=== PATIENT | male | born 1945 | race Caucasian/White ===

== ENCOUNTER 2021-02-05 09:14 | Inpatient (IN) ==
--- NOTE | 2021-02-04 12:33 | Anesthesiology Consultation ---
Date of Service February 04, 2021 History R foot drop The patient's blood sugar did drop to 70 and he was given one amp of D50 IV as and bag of 5% Dextrose was also started IV. His blood sugar on recheck was 182. Patient is sleepy but arousable and answering questions appropriately. He states he got sleepy after the medications he received in [facility]. This is likely the effect of the gabapentin he received as he is still sleepy after correcting his blood sugar. Assessment & Plan (1) Encounter for pre-operative examination: - COVID screening: Per assessment on 02/04: Travel screen negative, no known COVID-19 positive contacts or current COVID-19 related symptoms. Patient vaccinated. Surgeon arranged preop COVID testing (done 02/03; [place])- result was negative. Pt requiring admission post-operatively. Plan for recheck with COVID [place] AM DOS due to possibility that patient may have a roommate. OR aware. [place] order placed. - Cardiology office visit (10/01/20): "He has reasonable functional status for a ge, reported no cardiac symptoms and was clinically euvolemic. He does have LV systolic dysfunction with a last recorded EF of 40-45% but, as you know, this is not a contraindication to his right rotator cuff surgery, given his reasonable functional status in the absence of symptoms. He also had a relatively benign cardiac examination apart from a paradoxically split second heart sound, which is secondary to the chronic left bundle branch block. We should proceed with his surgery, excepting the cardiovascular risk involved in under perioperative beta-blockade. An ischemic evaluation is not merited." - Vascular office visit (05/09/20): appt was clearance for c-spine surgery: "US of his abdominal aorta reveals no evidence of endoleak. His noninvasive testing was within normal limits with normal ABIs. We will see him back in the office in 1 year with repeat testing. Okay to proceed with his neck surgery from our standpoint. In regards to his endograft, he may hold his Plavix for his upcoming surgery if needed." Per patient, Plavix was discontinued years ago but it was mentioned in 04/2020 vascular office visit note. Vascular did mention that it was okay to hold Plavix prior to c-spine surgery scheduled end of last year. Patient's says they will contact vascular to confirm if going forward he is supposed to be taking Plavix normally. - Check BSG AM DOS (glucose 53 on most recent labs, known hx of NIDDM on oral treatment. Will recheck glucose AM DOS) - Surgery was originally scheduled 09/2020 but rescheduled due to hyperkalemia (resolved) and anemia. Anemia now improved and patient had GI workup. Per GI note (01/07/21): "I spoke with the patient's in regard to the capsule endoscopy findings of a small intestinal erosion and prominent AVM that could be sources of his chronic gi blood loss and iron deficiency anemia noted in Sep 2020.. It is encouraging that his hgb is up to 11.6 as of 12-19-2020 with his treatment. he has stopped his aspirin 81 mg daily and has stopped using his nsaid for his shoulder pain. He has not on plavix etc. he is on ferrous sulfate 325 mg daily. he did receive his to IV iron. I discussed that if he continues his ferrous sulfate 325 daily and indefinitely, most likely we can compensate for any future chronic gi blood loss from his AVMS. We will check his cbc and iron studies in 2 and 4 mo.. Discussed that from my point of view, gastroenterology, he can have his shoulder surgery with very low probability that any gi issues would arise that would complicate his surgery or recovery." Did not see iron supplementation on patient's current medication list. Called and spoke with patient/patient's . She states that they were not told to start this but will chicken picker and start today. Hgb has remained stable over past month with most recent hgb 11.6 on recent 01/26 labs. - This was a late add-on case afternoon prior to DOS. Case reviewed with Dr. Watts. Okay to proceed with surgery without anything further at this point pending evaluation AM DOS. Chart Review Chart Review: Acceptable Risk for Surgery (pending evaluation AM DOS) and Patient NOT seen in Pre Admission Testing History Surgery Operation Date: 02/05/21 11:45 Proposed Procedures p Right Total Shoulder Arthroplasty Reverse - Tenzin Garcia M.D. Height/Weight Height: 5 ft 11 in Weight: 110.677 kg Allergies Allergy/AdvReac Type Severity Reaction Status Date / Time morphine AdvReac n/v, Verified 02/05/21 09:48 hypoventilation Medications Home Medications Medication Instructions Recorded Confirmed Last Taken aspirin [Aspir-81] 81 mg PO Q OTHER DAY 09/17/20 02/05/21 01/29/21 08:00 atorvastatin 40 mg PO PM 09/17/20 02/05/21 02/04/21 17:00 bisoprolol fumarate 5 mg PO QAM 09/17/20 02/05/21 02/05/21 06:00 donepezil 5 mg PO QPM 09/17/20 02/05/21 02/04/21 17:00 fenofibrate nanocrystallized 145 mg PO QAM 09/17/20 02/05/21 02/04/21 08:00 [Tricor] gabapentin 1,200 mg PO 09/17/20 02/05/21 02/04/21 22:00 glimepiride 2 mg PO QAM 09/17/20 02/05/21 02/04/21 08:00 levothyroxine 75 mcg PO QAM 09/17/20 02/05/21 02/05/21 06:00 lisinopril 10 mg PO QAM 09/17/20 02/05/21 02/04/21 12:00 montelukast 10 mg PO QAM 09/17/20 02/05/21 02/04/21 08:00 quetiapine 300 mg PO 09/17/20 02/05/21 02/04/21 22:00 ropinirole 2 mg PO QPM 09/17/20 02/05/21 02/04/21 17:00 sertraline 100 mg PO 09/17/20 02/05/21 02/04/21 22:00 spironolactone 12.5 mg PO QAM 09/17/20 02/05/21 02/04/21 08:00 dutasteride 0.5 mg PO QAM 02/04/21 02/05/21 02/05/21 06:00 silodosin [Rapaflo] 8 mg PO QAM 02/04/21 02/05/21 02/05/21 06:00 Vitamin D3 1 tab PO DAILY 02/05/21 02/05/21 02/04/21 08:00 acetaminophen [Tylenol Extra 500 mg PO Q6H 02/05/21 02/05/21 02/04/21 22:00 Strength] cyclobenzaprine [Flexeril] 5 mg PO HS 02/05/21 02/05/21 02/04/21 22:00 ferrous sulfate 325 mg PO DAILY 02/05/21 02/05/21 02/05/21 06:00 lamotrigine 200 mg PO BID 02/05/21 02/05/21 02/04/21 22:00 Active Medications Generic Name Dose Route Start Last Admin Trade Name Joana PRN Reason Stop Dose Admin Acetaminophen 1,000 mg 02/05/21 06:00 02/05/21 10:15 Acetaminophen 500 Mg Tab PO 02/05/21 18:00 1,000 mg PREOP IRIS Administration Famotidine 20 mg 02/05/21 06:00 02/05/21 10:15 Famotidine 20 Mg Tab PO 02/05/21 18:00 20 mg PREOP IRIS Administration Gabapentin 300 mg 02/05/21 06:00 02/05/21 10:15 Gabapentin 300 Mg Cap PO 02/05/21 18:00 300 mg PREOP IRIS Administration Cefazolin Sodium 2,000 mg in 15 mls @ 3.75 mls/min 02/05/21 06:00 02/05/21 13:18 Ancef 2000mg IV 02/05/21 18:00 3.75 mls/min PREOP IRIS Administration Protocol Tranexamic Acid 1,000 mg in 100 mls @ 600 mls/hr 02/05/21 06:00 02/05/21 13:23 Tranexamic Acid / 0.7% Nacl IV 02/05/21 18:00 600 mls/hr TODAY@0600 IRIS Administration Lactated Ringer's 1,000 mls @ 15 mls/hr 02/05/21 06:00 02/05/21 13:18 Lr IV 02/06/21 05:59 Infused .Q24H IRIS Infusion Metoclopramide HCl 10 mg 02/05/21 06:00 02/05/21 10:16 Metoclopramide Hcl 10 Mg Tablet PO 02/05/21 18:00 10 mg PREOP IRIS Administration Oxycodone HCl 10 mg 02/05/21 06:00 02/05/21 10:16 Oxycodone Hcl 10 Mg Tabcr (Oxycontin) PO 02/05/21 18:00 10 mg PREOP IRIS Administration Past Medical History Medical History AAA (abdominal aortic aneurysm) s/p PEVAR, follows with Dr. Peng, vascular. Per most recent vascular note, 05/09/20, [place] aneurysm sac measures 4.8 x 3.4 cm, no evidence of endoleak. Anxiety Bipolar disorder BPH (benign prostatic hyperplasia) CAD (coronary artery disease) stent x1 (2015) COPD (chronic obstructive pulmonary disease) Degenerative disc disease Dementia forgetful, is POA (pt signs his own consents per PAT RN interview) Depression DM type 2 (diabetes mellitus, type 2) NIDDM Hearing deficit History of kidney stones HTN (hypertension) Hyperlipidemia Hypothyroidism LBBB (left bundle branch block) chronic Myocardial infarction 2015 Osteoarthritis Pulmonary asbestosis follows with Dr. Tomlin () Restless leg syndrome Sleep apnea non compliant with CPAP Past Family History Family History Other No family history of adverse response to anesthesia Past Surgical History Surgical History History of arthroscopy of right knee History of cardiac catheterization stent x1 (2015) History of colonoscopy History of repair of left rotator cuff History of tooth extraction History of transurethral resection of prostate S/P aneurysm repair PEVAR/multiple aneurym repairs (follows with vascular) Social History Smoking Status: Former smoker Do You Dip or Chew Tobacco: No Smoking End Date: 45 years ago Hx Alcohol Use: No Hx Substance Use: No substance use type: does not use Physical Exam Vital Signs Last Vital Signs Temp 35.7 C L 02/05/21 16:40 Pulse 69 02/05/21 17:00 Resp 18 02/05/21 17:00 BP 111/59 L 02/05/21 17:00 Pulse Ox 98 02/05/21 17:00 Lab Results Anesthesia Preop Results Results Anesthesia Widget: WBC 5.32 K/uL (4.8-10.8) 01/26/21 Hgb 11.6 g/dL (14.0-18.0) L 01/26/21 Hct 37.9 % (42-52) L 01/26/21 Plt 185 K/uL (130-400) 01/26/21 Na 143 mmol/L (136-145) 01/26/21 K 4.5 mmol/L (3.5-5.1) 01/26/21 Cl 111 mmol/L (98-107) H 01/26/21 CO2 30 mmol/L (21-32) 01/26/21 BUN 33 mg/dl (7-18) H 01/26/21 Creat 1.30 mg/dl (0.6-1.4) 01/26/21 Glucose Level 53 mg/dl (70-99) L* 01/26/21 POC Glucose 140 mg/dl (70-99) H 02/05/21 PT 11.1 Seconds (9.0-12.0) 01/26/21 PTT 25.1 Seconds (21.0-31.0) 01/26/21 INR 1.1 (0.9-1.1) 01/26/21 HA1c 5.5 % (4.5-5.6) 01/26/21 Urine Color Yellow 01/26/21 Urine Appearance Clear (Clear) 01/26/21 Urine pH 5.0 (4.5-7.5) 01/26/21 Urine Specific [place] 1.023 (1.000-1.030) 01/26/21 Urine Protein Negative (Negative) 01/26/21 Urine Glucose (UA) Negative (Negative) 01/26/21 Urine Ketones Negative (Negative) 01/26/21 Urine Blood Negative (Negative) 01/26/21 Urine Nitrite Negative (Negative) 01/26/21 Urine Bilirubin Negative (Negative) 01/26/21 Urine Urobilinogen Negative (Negative) 01/26/21 Urine Leukocyte Esterase Negative (Negative) 01/26/21 SARS-CoV-2, RNA, NAAT NEGATIVE (NEGATIVE) 02/05/21 Blood Type A Positive 02/05/21 Antibody Screen NEGATIVE 02/05/21 Testing Laboratory Results Blood Type A Positive 02/05/21 09:45 Antibody Screen NEGATIVE 02/05/21 09:45 02/05/21 02/05/21 02/05/21 16:44 15:43 13:54 POC Glucose 140 H 154 H 151 H 02/05/21 02/05/21 02/05/21 12:18 11:56 11:55 POC Glucose 150 H 182 H 205 H 02/05/21 02/05/21 11:38 09:53 POC Glucose 70 92 Electrocardiogram Date: 09/19/20 + SB @ (51bpm). LBBB. Subsequent cardiology clearance visit 10/01/20* Chest X-Ray Date: 09/19/20 Findings: + NAD Echocardiogram Date: 12/04/19 EF 40 to 45%. Mild diffuse hypokinesis. LVD. No significant valvular disease. Stress Test Date: 01/17/20 Type: nuclear Myocardial perfusion scan reveals a large basal and mid inferior wall infarct extending on into the apex. No significant ischemia is seen. EF 42%. Lexiscan stress EKG not indicative of ischemia. 49% MPHR.
--- NOTE | 2021-02-04 21:28 | History & Physical Report ---
Date of Service February 04, 2021 Assessment & Plan (1) Rotator cuff arthropathy of right shoulder: He again has right shoulder rotator cuff tear arthropathy. We previously had him set up for a reverse total shoulder arthroplasty as treatment for this, but this had to be canceled due to GI bleeding. He has finally been fully evaluated and treated for this, and cleared to proceed with his shoulder replacement surgery. We will get him back on the surgery schedule. Of note, we will avoid anti-inflammatories postoperatively to avoid any exacerbation of his gastritis. Risks, benefits, and alternatives of surgery were explained in detail. The surgical procedure, as well as postoperative recovery and rehabilitation, was also explained in detail. Risks include bleeding; infection; damage to surrounding structures such as nerves, blood vessels, and tendons that run in the area; persistent pain or stiffness; hardware failure; dislocation; brachial plexus palsy; blood clots; or need for further surgery. The patient understands all of this and wishes to proceed with surgery. Preoperative workup was completed today, and informed consent was obtained. Present on Admission?: Yes History of Present Illness Chief Complaint: Right shoulder pain and weakness Primary Care Provider: Henry Carrillo Mr. Lopes returns for his right shoulder. He again has had severe right shoulder pain and weakness for the past 2 years without any obvious injury but with gradual progressive worsening. This is quite painful and waking him up at night. He has a lot of weakness and cannot abduct past shoulder level, but the pain is much more bothersome than the lack of abduction strength. I gave him a shoulder joint steroid injection as first-line treatment for this in July 2020. He reports that he got about 60% improvement in his pain for a little over a month, but then it promptly wore off and he is back to his baseline level of pain. While the injection was giving him some pain relief, I was able to move his shoulder a little bit better. Due to his recurrent severe pain, we did actually have him set up for a reverse total shoulder arthroplasty, but this had to be canceled due to gastrointestinal bleeding issues. He had an extensive work-up with a grievance manager, including endoscopy, colonoscopy, and capsule endoscopy. He was finally cleared by his grievance manager to proceed with his shoulder surgery; we received this clearance on 01/08/21. It looks like they found a small intestinal erosion, some hemorrhoids, and an AV malformation as a source of his chronic blood loss. He has been treated with ferrous sulfate. The looks like he was instructed not to take any anti-inflammatories. Allergies Allergy/AdvReac Type Severity Reaction Status Date / Time morphine AdvReac n/v, Verified 02/04/21 11:37 hypoventilation Home Medications Medication Instructions Recorded Confirmed Type aspirin [Aspir-81] 81 mg PO Q OTHER DAY 09/17/20 02/04/21 History atorvastatin 40 mg PO PM 09/17/20 02/04/21 History bisoprolol fumarate 5 mg PO QAM 09/17/20 02/04/21 History donepezil 5 mg PO QPM 09/17/20 02/04/21 History fenofibrate nanocrystallized 145 mg PO QAM 09/17/20 02/04/21 History [Tricor] gabapentin 1,200 mg PO HS 09/17/20 02/04/21 History glimepiride 2 mg PO QAM 09/17/20 02/04/21 History lamotrigine 200 mg PO BID 09/17/20 02/04/21 History levothyroxine 75 mcg PO QAM 09/17/20 02/04/21 History lisinopril 10 mg PO QAM 09/17/20 02/04/21 History montelukast 10 mg PO QAM 09/17/20 02/04/21 History quetiapine 300 mg PO HS 09/17/20 02/04/21 History ropinirole 2 mg PO QPM 09/17/20 02/04/21 History sertraline 100 mg PO HS 09/17/20 02/04/21 History spironolactone 12.5 mg PO QAM 09/17/20 02/04/21 History dutasteride 0.5 mg PO QAM 02/04/21 02/04/21 History silodosin [Rapaflo] 8 mg PO QAM 02/04/21 02/04/21 History Past Med/Surg History Medical History AAA (abdominal aortic aneurysm) s/p PEVAR, follows with Dr. Peng, vascular. Per most recent vascular note, 05/09/20, [place] aneurysm sac measures 4.8 x 3.4 cm, no evidence of endoleak. Anxiety Bipolar disorder BPH (benign prostatic hyperplasia) CAD (coronary artery disease) stent x1 (2015) COPD (chronic obstructive pulmonary disease) Degenerative disc disease Dementia forgetful, is POA (pt signs his own consents per PAT RN interview) Depression DM type 2 (diabetes mellitus, type 2) NIDDM Hearing deficit History of kidney stones HTN (hypertension) Hyperlipidemia Hypothyroidism LBBB (left bundle branch block) chronic Myocardial infarction 2016 Osteoarthritis Pulmonary asbestosis follows with Dr. Tomlin () Restless leg syndrome Sleep apnea non compliant with CPAP Surgical History History of arthroscopy of right knee History of cardiac catheterization stent x1 (2015) History of colonoscopy History of repair of left rotator cuff History of tooth extraction History of transurethral resection of prostate S/P aneurysm repair PEVAR/multiple aneurym repairs (follows with vascular) Family History Other No family history of adverse response to anesthesia Social History Smoking Status: Former smoker Smoking End Date: 45 years ago; Second Hand Exposure: No; Do You Dip or Chew Tobacco: No; Tobacco Cessation Education Requested by Patient: No Hx Alcohol Use: No Hx Substance Use: No Preferred Language: Turkmen Communication Ability: Effective Helicopter Utility Aircrewman Required: No Beliefs That Will Affect Care: None Current Living Situation: Spouse Other Information That Helps Us Care for You: No Feels Safe at Home: Yes Safety Concerns: Feels Safe At This Time Assistive Devices: Denture - Upper and Glasses Physical Exam Physical Exam: General: The patient appears well developed and well nourished. Awake, alert, and oriented x 3. Appropriate mood and affect. Normal gait and station. Normal coordination and balance. Skin: The skin over the right shoulder shows no lesion or erythema. Inspection/Palpation: Visual inspection reveals no gross deformity of the shoulder. There is no palpable focal swelling. No significant focal tenderness to palpation. Range of Motion: There is limitation in shoulder range of motion due to pain, with palpable crepitus during motion. Stability: There is no gross ligamentous laxity. Strength: Rotator cuff strength is globally weak. Sensation: The patient reports no numbness in the hand. Vascular: Hand is warm and well perfused. No diffuse edema. Results & Data ([facility]) Diagnostic Findings Previous x-rays and MRI of the right shoulder were reviewed. They show obvious proximal migration humeral head with secondary remodeling changes consistent with rotator cuff tear arthropathy. MRI shows a massive, retracted, full- thickness rotator cuff tear involving the entirety of the supraspinatus and infraspinatus tendons. There is approximately 80% fatty atrophy of the supraspinatus muscle belly. Again noted is secondary remodeling changes on the undersurface the acromion, consistent with rotator cuff tear arthropathy. He does have some arthritic changes within the glenohumeral joint.
[~2021-02-05 09:14] MED LIST: ACETAMINOPHEN 500 MG TAB PO SCH; BUPIVACAINE 0.5 % 5 MG/1 ML PF 10ML VIAL ONE; FAMOTIDINE 20 MG TAB PO SCH; GABAPENTIN 300 MG CAP PO SCH; LR 15ML/HR IV SCH; METOCLOPRAMIDE HCL 10 MG TABLET PO SCH; TRANEXAMIC ACID 1,000 MG **IV Pre-op IV SCH; ceFAZolin 2000MG 2,000 MG/15 ML SYR IV SCH; oxyCODONE HCL 10 MG TABCR (OxyCONTIN) PO SCH
[2021-02-05] MEDS ORDERED: DEXTROSE 50% 50 ML SYRINGE IV ONE (11:43)
[2021-02-05] MEDS ORDERED: fentaNYL citrate 100 MCG/2 ML VIAL ONE (11:57)
[2021-02-05] MEDS ORDERED: MIDAZOLAM HCL 1 MG/ML 2ML VIAL ONE (11:57)
--- NOTE | 2021-02-05 12:34 | History & Physical Bridge Note ---
Date of Service February 05, 2021 History & Physical Bridge Note I have examined the patient, reviewed the History & Physical and in the interval since the performance of the History & Physical I have noted the following changes of clinical significance: no changes noted
[2021-02-05] MEDS ORDERED: ATROPINE SULFATE 0.1 MG/ML 10ML SYR IV PRN (14:49)
[2021-02-05] MEDS ORDERED: ePHEDrine sulfate 50 MG/ML AMP IV PRN (14:49)
[2021-02-05] MEDS ORDERED: fentaNYL citrate 100 MCG/2 ML VIAL IV PRN (14:49)
[2021-02-05] MEDS ORDERED: ONDANSETRON INJ 2 MG/ML 2 ML VIAL IV PRN ×2 (14:49→17:41)
[2021-02-05] MEDS ORDERED: ROCURONIUM BROMIDE 10 MG/ML 5 ML VIAL IV ONE (14:53)
[2021-02-05] MEDS ORDERED: ePHEDrine sulfate 50 MG/ML AMP ONE (14:53)
[2021-02-05] MEDS ORDERED: GLYCOPYRROLATE 0.2 MG/ML VIAL ONE (14:53)
[2021-02-05] MEDS ORDERED: VASOPRESSIN 20 UNIT/ML VIAL ONE (14:53)
[2021-02-05] MEDS ORDERED: PROPOFOL IV EMULSION 10 MG/ML 20 ML VIAL IV ONE (14:53)
[2021-02-05] MEDS ORDERED: PHENYLEPHRINE HCL 10 MG/ML VIAL ONE (14:53)
--- NOTE | 2021-02-05 16:07 | Post Operative Brief Note ---
Immediate Post Op Note v1 Date of Surgery February 05, 2021 Pre & Post Diagnosis Operation Date: 02/05/21 11:45 Pre-Op Diagnosis: Right Shoulder Rotator Cuff Tear Arthropathy Post-Op Diagnosis: Right Shoulder Rotator Cuff Tear Arthropathy I identified the patient and participated in the time-out.: Yes Procedure Operation Date: 02/05/21 11:45 Actual Procedures Right Reverse Total Shoulder Arthroplasty - Tenzin Garcia M.D. Surgeon Tenzin Garcia Trans Router Austin Terry PA-C Estimated Blood Loss 75 Findings Consistent with Post-Op Diagnosis
--- NOTE | 2021-02-05 16:14 | Operative Report ---
Post Operative Report Pre & Post Diagnosis Operation Date: 02/05/21 11:45 Pre-Op Diagnosis: Right Shoulder Rotator Cuff Tear Arthropathy Post-Op Diagnosis: Right Shoulder Rotator Cuff Tear Arthropathy I identified the patient and participated in the time-out.: Yes Procedure Operation Date: 02/05/21 11:45 Actual Procedures Right Reverse Total Shoulder Arthroplasty (62693) Open biceps tenodesis (25906) - Tenzin Garcia M.D. Surgeon Tenzin Garcia Decorative Engraver Austin Terry PA-C Estimated Blood Loss 75 Findings Consistent with Post-Op Diagnosis Specimens None Drains None Anesthesia Type General Regional Complications none Disposition Disposition: Recovery Room Indications Mr. Lopes is a 75-year-old male with chronic right shoulder pain and weakness. History, clinical exam, and imaging were consistent with the above diagnosis. Risks, benefits, and alternatives of surgery were explained in detail. The patient understood all this and wished to proceed. Description of Procedure Components Implanted: Tornier Reverse Total Shoulder implants Perform glenoid baseplate: 29mm, 15 degree full wedge with 6.5mm central screw and 5.0mm peripheral screws Glenosphere: 39mm standard Ascend Flex humeral stem: 6B Standard length (86mm) Humeral tray: 3.5mm offset, +0mm thickness Polyethylene insert: 39mm, +6mm thickness Patient was identified in the preoperative holding area. Operative extremity was marked. Regional blockade was given by the Anesthesia Staff. Patient was then brought back to the operating room, and general anesthesia was induced without complication. Appropriate weight-based dose of Ancef was infused intravenously for antibiotic prophylaxis. The patient was then placed in the beachchair position. Right arm was then prepped and draped in a standard sterile fashion using Chlorhexidine prep. A standard deltopectoral incision was made through the skin and subcutaneous tissue. The cephalic vein was identified and retracted medially. Small branches to the deltoid were coagulated as necessary. The clavipectoral fascia was then incised and the subdeltoid space was opened. The rotator cuff was found to be deficient, and I therefore decided to perform a reverse total shoulder arthroplasty as planned preoperatively. The biceps tendon was identified within the bicipital groove and tenodesed at the superior border of the pectoralis tendon with #2 FiberWire suture. The biceps tendon was then divided proximal to the tenodesis site and the rotator interval was opened. The proximal portion of the biceps tendon was excised. The remaining subscapularis tendon was elevated subperiosteally off of the lesser tuberosity. The glenohumeral joint was then dislocated, and large osteophytes were debrided with a ronguer. The humeral head cut was then made in the appropriate inclination and version using the cutting guide. The intramedullary canal of the humerus was then opened with a canal finder. The humeral canal was then sequentially broached to the appropriate size. A protective cap was then placed on top of the humeral trial. I then turned my attention to the glenoid. The proximal stump of the biceps tendon was excised, along with the labrum circumferentially around the glenoid. The Blueprint drill guide was then positioned on the glenoid, and the guidepin was then inserted. The 15 degree angled reamer was then inserted over the guidepin and an reamed to an appropriate depth. The central screw hole was drilled, and appropriate length 6.5mm central screw was selected. The baseplate was then implanted into place according to our preoperative Blueprint plan by tightening down the central screw. A peripheral 5mm nonlocking screw was placed postero-superiorly first for additional compression of the baseplate, and then additional locking 5 mm peripheral screws were placed to complete fixation of the baseplate. Glenosphere was then impacted and secured. A trial humeral tray and insert were placed on the trial humeral stem, and a trial reduction was carried out. Once I achieved acceptable joint stability and range of motion with the trial implants, the final humeral implants were assembled on the back table and then impacted into position. I then took the shoulder through full range of motion to ensure good stability and acceptable motion. Wound was then copiously irrigated with sterile saline. Deep fascia was closed with 0 V-lock suture. Subcutaneous tissue was closed with 2-0 V-lock, and skin was closed with 3-0 V-lock. Skin was then sealed with Dermabond. Sterile dressings were then applied with a waterproof silver-impregnated dressing, and the arm was placed into a sling. The patient was awakened from anesthesia and taken to the Post Anesthesia Care Unit in stable condition. There were no immediate complications from the procedure. I was present and scrubbed for the entire procedure, with the exception of final skin closure and dressing application. Due to the complex nature of the procedure, the entire surgery was performed with the operational assistance of Austin Terry PA-C. The nutritional assistant, under direct supervision, was involved in the performance of all aspects of the surgical procedure including patient positioning, tissue retraction, hemostasis, wound closure, and dressing application. I attest to the content of the Intraoperative Record and any orders documented therein. Any exceptions are noted below.
--- NOTE | 2021-02-05 17:06 | Anesthesiology Progress Note ---
Date of Service February 05, 2021 Anesthesia Post Procedure Vital Signs Vital Signs: Temp Pulse Resp BP Pulse Ox 02/05/21 17:00 69 18 111/59 L 98 02/05/21 16:50 65 20 111/71 100 02/05/21 16:40 35.7 C L 66 20 127/67 98 02/05/21 09:59 36.6 C 53 L 20 130/70 96 Transfer of Care Handoff Completed per policy Notes Mental Status: alert / awake / arousable and participated in evaluation Patient Amnestic to Procedure: Yes Nausea / Vomiting: adequately controlled Pain: adequately controlled Airway Patency, RR, SpO2: stable & adequate BP & HR: stable & adequate Hydration State: stable & adequate Anesthetic Complications: no major complications apparent and Pt Satisfied with anesthetic care
--- NOTE | 2021-02-05 17:10 | XRay Report ---
XR shoulder RT min 2V routine CLINICAL HISTORY: Post shoulder surgery COMPARISON: None. DISCUSSION: There are postsurgical changes of a reverse total right shoulder arthroplasty. There is n o dislocation. There is gas within soft tissues consistent with recent surgery. There is a suspected small right pleural effusion with right basilar atelectasis. There is mild vascular prominence. IMPRESSION: Postsurgical changes of a reverse total right shoulder arthroplasty. ACT 112: Negative or not required by law. Electronically signed by: Deric Harp M.D. 02/05/2021 5:08 PM
[2021-02-05] MEDS ORDERED: METOCLOPRAMIDE HCL INJ 5 MG/ML 2 ML VIAL IV PRN (17:41)
[2021-02-05] MEDS ORDERED: NALOXONE HCL 0.4 MG/1 ML VIAL/CARP IV PRN (17:41)
[2021-02-05] MEDS ORDERED: bisacodyL 10 MG SUPP PR PRN (17:41)
[2021-02-05] MEDS ORDERED: MAGNESIUM HYDROXIDE SUSP 30 ML UDC PO PRN (17:41)
[2021-02-05] MEDS ORDERED: PHARMACY GLYCEMIC MGMT CONSULT PRN (17:49)
[2021-02-05] MEDS ORDERED: GLUCAGON FOR INJ 1 MG VIAL SQ PRN (18:15)
[2021-02-05] MEDS ORDERED: CARBOHYDRATES FOR HYPOGLYCEMIA PO PRN (18:15)
[2021-02-05] MEDS ORDERED: DEXTROSE 50% 50 ML SYRINGE IV PRN (18:15)
[2021-02-05] MEDS ORDERED: GLUCOSE 10 TABS/TUBE PO PRN (18:15)
[2021-02-05] MEDS ORDERED: GLUCOSE 40% GEL 15 GM TUBE PO PRN (18:15)
--- NOTE | 2021-02-05 18:43 | Pharmacy Report ---
PHA: Glycemic Control AP - Date of Service February 05, 2021 - Assessment & Plan Laboratory Tests 01/26/21 02/05/21 02/05/21 15:09 09:53 11:38 POC Glucose 92 70 Hemoglobin A1c 5.5 02/05/21 02/05/21 02/05/21 11:55 11:56 12:18 POC Glucose 205 H 182 H 150 H Hemoglobin A1c 02/05/21 02/05/21 02/05/21 13:54 15:43 16:44 POC Glucose 151 H 154 H 140 H Hemoglobin A1c 02/05/21 18:11 POC Glucose 119 H Hemoglobin A1c Home Diabetes Regimen: * glimeperide 2mg po daily * A1c=5.5% (01/26/21) In-Patient Regimen: * Basal insulin: Not ordered at this time * Correctional Insulin: Novolog Correction per scale ACHS Goal Range: Low 100 mg/dL - High 140 mg/dL Correction Factor: 30 mg/dL/unit * Prandial insulin: Per carb ratio of 1 unit per 12 grams CHO consumed Pharmacy will continue to monitor patient daily and write orders per [facility] inpatient glycemic control protocol. Thanks. * Please note that the plan above was derived based on current level of insulin resistance and hospital stress. These recommendations are appropriate for inpatient admission only. Plan of care upon discharge will need to be reassessed to avoid potential outpatient hypo/hyperglycemia.
[2021-02-05] MEDS: ACETAMINOPHEN 500 MG TAB PO SCH ×2 (18:45→23:46)
[2021-02-05] MEDS: SODIUM CHLORIDE 0.9% 1000ML 1,000 ML IV SCH (18:46)
[2021-02-05] MEDS: INSULIN ASPART 100 UNITS/ML 3 ML PEN SC SCH ×2 (18:50→21:22)
[2021-02-05] MEDS: DONEPEZIL HCL 5 MG TAB PO SCH (20:47)
[2021-02-05] MEDS: GABAPENTIN 600 MG TAB PO SCH (20:47)
[2021-02-05] MEDS: SENNA 8.6 MG TAB PO SCH (20:48)
[2021-02-05] MEDS: ATORVASTATIN 40 MG TAB PO SCH (20:48)
[2021-02-05] MEDS: DOCUSATE SODIUM 100 MG CAP PO SCH (20:48)
[2021-02-05] MEDS: QUEtiapine FUMARATE 300 MG TABLET PO SCH (20:49)
[2021-02-05] MEDS: rOPINIRole HCL 1 MG TABLET PO SCH (20:49)
[2021-02-05] MEDS: lamoTRIgine 100 MG TAB PO SCH (20:49)
[2021-02-05] MEDS: SERTRALINE HCL 100 MG TABLET PO SCH (20:50)
[2021-02-05] MEDS: ceFAZolin 2000MG 2,000 MG/15 ML SYR IV SCH (20:59)
[2021-02-05] MEDS: oxyCODONE HCL IR 5 MG TAB (IMMEDIATE RELEASE) PO PRN (23:45)
[2021-02-06] MEDS: oxyCODONE HCL IR 5 MG TAB (IMMEDIATE RELEASE) PO PRN ×5 (03:33→21:20)
[2021-02-06] MEDS: SODIUM CHLORIDE 0.9% 1000ML 1,000 ML IV SCH ×2 (03:34→03:50)
[2021-02-06] MEDS: ceFAZolin 2000MG 2,000 MG/15 ML SYR IV SCH (05:02)
[2021-02-06] MEDS: ACETAMINOPHEN 500 MG TAB PO SCH ×4 (05:46→23:45)
[2021-02-06] MEDS: LEVOTHYROXINE SODIUM 75 MCG TABLET PO SCH (05:47)
[2021-02-06 06:09] LABS: Basophils # (auto) 0.02 K/uL (0-0.2); Basophils % (auto) 0.4 %; Eosinophils # (auto) 0.16 K/uL (0-0.5); Eosinophils % (auto) 2.9 %; Hematocrit (blood only) 35.7 % (42-52); Immature Granulocytes # (auto) 0.01 K/uL (0.00-0.02); Immature Granulocytes % (auto) 0.2 %; Lymphocytes # (auto) 1.19 K/uL (1.2-3.4); Lymphocytes % (auto) 21.5 %; Mean Corpuscular Hemoglobin 29.2 pg (25-34); Mean Corpuscular Hgb Conc 30.8 g/dL (32-36); Mean Corpuscular Volume 94.7 fL (80-100); Mean Platelet Volume 10.6 fL (7.4-10.4); Monocytes # (auto) 0.53 K/uL (0.11-0.59); Monocytes % (auto) 9.6 %; Neutrophils # (auto) 3.63 K/uL (1.4-6.5); Neutrophils % (auto) 65.4 %; Platelet Count 166 K/uL (130-400); RDW Coefficient of Variation 15.9 % (11.5-14.5); RDW Standard Deviation 55.2 fL (36.4-46.3); Red Blood Count 3.77 M/uL (4.7-6.1); White Blood Count 5.54 K/uL (4.8-10.8)
[2021-02-06 06:36] LABS: BUN Creatinine Ratio 14.5 (10-20); Creatinine Clr Calc Pharmacy 67.7 ml/min; Est GFR (African American) 67.1 ml/min; Est GFR (Non-African American) 57.9 ml/min
--- NOTE | 2021-02-06 08:26 | Orthopedic Progress Note ---
Date of Service February 06, 2021 Assessment & Plan (1) Rotator cuff arthropathy of right shoulder: Admission and Anticipated Discharge Date Admission Date: February 05, 2021 75 yo male stable POD #1 s/p right reverse TSA 1. Med management 2. DVT prophylaxis- ASA, SCDs 3. PT/OT 4. D/C planning- home w/ OPPT Subjective Pt resting in chair, eating breakfast, pain controlled, denies complaints Physical Exam Physical Exam: Silverlon dressing in place, fingers mobile, NVI Results & Data ([facility]) Vital Signs (Past 12 Hours) Vital Signs Temp Pulse Resp BP Pulse Ox 02/06/21 07:14 37.2 C 74 18 132/72 91 02/06/21 02:54 37.3 C 76 16 143/70 H 92 02/05/21 23:34 37 C 72 18 137/57 L 93 02/05/21 20:56 36.4 C L 67 18 127/69 96 Laboratory Results 02/06/21 02/06/21 02/06/21 Range/Units 08:07 05:39 05:39 WBC (4.8-10.8) K/uL RBC (4.7-6.1) M/uL Hgb (14.0-18.0) g/dL Hct (42-52) % MCV (80-100) fL MCH (25-34) pg MCHC (32-36) g/dL RDW Std Deviation (36.4-46.3) fL RDW Coeff of Alex (11.5-14.5) % Plt Count (130-400) K/uL MPV (7.4-10.4) fL Immature Gran % (Auto) % Neut % (Auto) % Lymph % (Auto) % Payette % (Auto) % Eos % (Auto) % Baso % (Auto) % Neut # (Auto) (1.4-6.5) K/uL Lymph # (Auto) (1.2-3.4) K/uL Payette # (Auto) (0.11-0.59) K/uL Eos # (Auto) (0-0.5) K/uL Baso # (Auto) (0-0.2) K/uL Immature Gran # (Auto) (0.00-0.02) K/uL Sodium 138 (136-145) mmol/L Potassium 5.0 (3.5-5.1) mmol/L Chloride 108 H (98-107) mmol/L Carbon Dioxide 28 (21-32) mmol/L Anion Gap 2.0 L (3-11) BUN 18 (7-18) mg/dl Creatinine 1.23 (0.6-1.4) mg/dl Est Cr Clr Drug Dosing 67.7 ml/min Est GFR ( Amer) 67.1 ml/min Est GFR (Non-Af Amer) 57.9 ml/min BUN/Creatinine Ratio 14.5 (10-20) Glucose 73 (70-99) mg/dl POC Glucose 76 (70-99) mg/dl Calcium 8.0 L (8.5-10.1) mg/dl COVID-19 Eval Order Hepatitis C Ab Screen Pending SARS-CoV-2, RNA, NAAT (NEGATIVE) Blood Type Antibody Screen 02/06/21 02/05/21 02/05/21 Range/Units 05:39 21:20 18:11 WBC 5.54 (4.8-10.8) K/uL RBC 3.77 L (4.7-6.1) M/uL Hgb 11.0 L (14.0-18.0) g/dL Hct 35.7 L (42-52) % MCV 94.7 (80-100) fL MCH 29.2 (25-34) pg MCHC 30.8 L (32-36) g/dL RDW Std Deviation 55.2 H (36.4-46.3) fL RDW Coeff of Alex 15.9 H (11.5-14.5) % Plt Count 166 (130-400) K/uL MPV 10.6 H (7.4-10.4) fL Immature Gran % (Auto) 0.2 % Neut % (Auto) 65.4 % Lymph % (Auto) 21.5 % Payette % (Auto) 9.6 % Eos % (Auto) 2.9 % Baso % (Auto) 0.4 % Neut # (Auto) 3.63 (1.4-6.5) K/uL Lymph # (Auto) 1.19 L (1.2-3.4) K/uL Payette # (Auto) 0.53 (0.11-0.59) K/uL Eos # (Auto) 0.16 (0-0.5) K/uL Baso # (Auto) 0.02 (0-0.2) K/uL Immature Gran # (Auto) 0.01 (0.00-0.02) K/uL Sodium (136-145) mmol/L Potassium (3.5-5.1) mmol/L Chloride (98-107) mmol/L Carbon Dioxide (21-32) mmol/L Anion Gap (3-11) BUN (7-18) mg/dl Creatinine (0.6-1.4) mg/dl Est Cr Clr Drug Dosing ml/min Est GFR ( Amer) ml/min Est GFR (Non-Af Amer) ml/min BUN/Creatinine Ratio (10-20) Glucose (70-99) mg/dl POC Glucose 87 119 H (70-99) mg/dl Calcium (8.5-10.1) mg/dl COVID-19 Eval Order Hepatitis C Ab Screen SARS-CoV-2, RNA, NAAT (NEGATIVE) Blood Type Antibody Screen 02/05/21 02/05/21 02/05/21 Range/Units 16:44 15:43 13:54 WBC (4.8-10.8) K/uL RBC (4.7-6.1) M/uL Hgb (14.0-18.0) g/dL Hct (42-52) % MCV (80-100) fL MCH (25-34) pg MCHC (32-36) g/dL RDW Std Deviation (36.4-46.3) fL RDW Coeff of Alex (11.5-14.5) % Plt Count (130-400) K/uL MPV (7.4-10.4) fL Immature Gran % (Auto) % Neut % (Auto) % Lymph % (Auto) % Payette % (Auto) % Eos % (Auto) % Baso % (Auto) % Neut # (Auto) (1.4-6.5) K/uL Lymph # (Auto) (1.2-3.4) K/uL Payette # (Auto) (0.11-0.59) K/uL Eos # (Auto) (0-0.5) K/uL Baso # (Auto) (0-0.2) K/uL Immature Gran # (Auto) (0.00-0.02) K/uL Sodium (136-145) mmol/L Potassium (3.5-5.1) mmol/L Chloride (98-107) mmol/L Carbon Dioxide (21-32) mmol/L Anion Gap (3-11) BUN (7-18) mg/dl Creatinine (0.6-1.4) mg/dl Est Cr Clr Drug Dosing ml/min Est GFR ( Amer) ml/min Est GFR (Non-Af Amer) ml/min BUN/Creatinine Ratio (10-20) Glucose (70-99) mg/dl POC Glucose 140 H 154 H 151 H (70-99) mg/dl Calcium (8.5-10.1) mg/dl COVID-19 Eval Order Hepatitis C Ab Screen SARS-CoV-2, RNA, NAAT (NEGATIVE) Blood Type Antibody Screen 02/05/21 02/05/21 02/05/21 Range/Units 12:18 11:56 11:55 WBC (4.8-10.8) K/uL RBC (4.7-6.1) M/uL Hgb (14.0-18.0) g/dL Hct (42-52) % MCV (80-100) fL MCH (25-34) pg MCHC (32-36) g/dL RDW Std Deviation (36.4-46.3) fL RDW Coeff of Alex (11.5-14.5) % Plt Count (130-400) K/uL MPV (7.4-10.4) fL Immature Gran % (Auto) % Neut % (Auto) % Lymph % (Auto) % Payette % (Auto) % Eos % (Auto) % Baso % (Auto) % Neut # (Auto) (1.4-6.5) K/uL Lymph # (Auto) (1.2-3.4) K/uL Payette # (Auto) (0.11-0.59) K/uL Eos # (Auto) (0-0.5) K/uL Baso # (Auto) (0-0.2) K/uL Immature Gran # (Auto) (0.00-0.02) K/uL Sodium (136-145) mmol/L Potassium (3.5-5.1) mmol/L Chloride (98-107) mmol/L Carbon Dioxide (21-32) mmol/L Anion Gap (3-11) BUN (7-18) mg/dl Creatinine (0.6-1.4) mg/dl Est Cr Clr Drug Dosing ml/min Est GFR ( Amer) ml/min Est GFR (Non-Af Amer) ml/min BUN/Creatinine Ratio (10-20) Glucose (70-99) mg/dl POC Glucose 150 H 182 H 205 H (70-99) mg/dl Calcium (8.5-10.1) mg/dl COVID-19 Eval Order Hepatitis C Ab Screen SARS-CoV-2, RNA, NAAT (NEGATIVE) Blood Type Antibody Screen 02/05/21 02/05/21 02/05/21 Range/Units 11:38 09:53 09:45 WBC (4.8-10.8) K/uL RBC (4.7-6.1) M/uL Hgb (14.0-18.0) g/dL Hct (42-52) % MCV (80-100) fL MCH (25-34) pg MCHC (32-36) g/dL RDW Std Deviation (36.4-46.3) fL RDW Coeff of Alex (11.5-14.5) % Plt Count (130-400) K/uL MPV (7.4-10.4) fL Immature Gran % (Auto) % Neut % (Auto) % Lymph % (Auto) % Payette % (Auto) % Eos % (Auto) % Baso % (Auto) % Neut # (Auto) (1.4-6.5) K/uL Lymph # (Auto) (1.2-3.4) K/uL Payette # (Auto) (0.11-0.59) K/uL Eos # (Auto) (0-0.5) K/uL Baso # (Auto) (0-0.2) K/uL Immature Gran # (Auto) (0.00-0.02) K/uL Sodium (136-145) mmol/L Potassium (3.5-5.1) mmol/L Chloride (98-107) mmol/L Carbon Dioxide (21-32) mmol/L Anion Gap (3-11) BUN (7-18) mg/dl Creatinine (0.6-1.4) mg/dl Est Cr Clr Drug Dosing ml/min Est GFR ( Amer) ml/min Est GFR (Non-Af Amer) ml/min BUN/Creatinine Ratio (10-20) Glucose (70-99) mg/dl POC Glucose 70 92 (70-99) mg/dl Calcium (8.5-10.1) mg/dl COVID-19 Eval Order Hepatitis C Ab Screen SARS-CoV-2, RNA, NAAT (NEGATIVE) Blood Type A Positive Antibody Screen NEGATIVE 02/05/21 02/05/21 Range/Units 09:42 09:42 WBC (4.8-10.8) K/uL RBC (4.7-6.1) M/uL Hgb (14.0-18.0) g/dL Hct (42-52) % MCV (80-100) fL MCH (25-34) pg MCHC (32-36) g/dL RDW Std Deviation (36.4-46.3) fL RDW Coeff of Alex (11.5-14.5) % Plt Count (130-400) K/uL MPV (7.4-10.4) fL Immature Gran % (Auto) % Neut % (Auto) % Lymph % (Auto) % Payette % (Auto) % Eos % (Auto) % Baso % (Auto) % Neut # (Auto) (1.4-6.5) K/uL Lymph # (Auto) (1.2-3.4) K/uL Payette # (Auto) (0.11-0.59) K/uL Eos # (Auto) (0-0.5) K/uL Baso # (Auto) (0-0.2) K/uL Immature Gran # (Auto) (0.00-0.02) K/uL Sodium (136-145) mmol/L Potassium (3.5-5.1) mmol/L Chloride (98-107) mmol/L Carbon Dioxide (21-32) mmol/L Anion Gap (3-11) BUN (7-18) mg/dl Creatinine (0.6-1.4) mg/dl Est Cr Clr Drug Dosing ml/min Est GFR ( Amer) ml/min Est GFR (Non-Af Amer) ml/min BUN/Creatinine Ratio (10-20) Glucose (70-99) mg/dl POC Glucose (70-99) mg/dl Calcium (8.5-10.1) mg/dl COVID-19 Eval [email or web address] C Ab Screen SARS-CoV-2, RNA, NAAT NEGATIVE (NEGATIVE) Blood Type Antibody Screen
[2021-02-06] MEDS: INSULIN ASPART 100 UNITS/ML 3 ML PEN SC SCH ×4 (08:32→21:57)
[2021-02-06] MEDS: MULTIVITAMIN TAB PO SCH (08:35)
[2021-02-06] MEDS: lisinopril 10 MG TAB PO SCH (08:35)
[2021-02-06] MEDS: DOCUSATE SODIUM 100 MG CAP PO SCH ×2 (08:36→21:14)
[2021-02-06] MEDS: lamoTRIgine 100 MG TAB PO SCH ×2 (08:36→21:11)
[2021-02-06] MEDS: CHOLECALCIFEROL 400 UNITS 10 MCG TAB PO SCH (08:36)
[2021-02-06] MEDS: BISOPROLOL FUMARATE 5 MG TAB PO SCH (08:37)
[2021-02-06] MEDS: FENOFIBRATE NANOCRYSTALLIZED 145 MG TABLET PO SCH (08:37)
[2021-02-06] MEDS: FERROUS SULFATE 325 MG TAB PO SCH (08:37)
[2021-02-06] MEDS: MONTELUKAST SODIUM 10 MG TABLET PO SCH (08:38)
[2021-02-06] MEDS: ASPIRIN 325 MG ECTAB PO SCH (08:38)
[2021-02-06] MEDS ORDERED: SILODOSIN 8 MG PO SCH (09:00)
[2021-02-06] MEDS ORDERED: ASPIRIN 325 MG ECTAB PO SCH (09:00)
[2021-02-06] MEDS ORDERED: NON-FORMULARY MEDICATION (Dutasteride 0.5 mg Capsule) PO SCH (09:00)
[2021-02-06] MEDS ORDERED: SPIRONOLACTONE 12.5 MG TAB PO SCH (09:00)
--- NOTE | 2021-02-06 12:25 | Pharmacy Report ---
Pharmacy Glycemic Short Note 2 - Date of Service February 06, 2021 - Glycemic Short BSG Results (Last 24 hours): 02/05/21 02/05/21 02/05/21 12:18 13:54 15:43 Glucose POC Glucose 150 H 151 H 154 H 02/05/21 02/05/21 02/05/21 16:44 18:11 21:20 Glucose POC Glucose 140 H 119 H 87 02/06/21 02/06/21 02/06/21 05:39 08:07 12:03 Glucose 73 POC Glucose 76 87 OUTPATIENT ANTIDIABETIC REGIMEN: * Glimepiride 2 mg PO AM * HbA1c = 5.5% (01/26/21) ASSESSMENT: * 75 yo M admitted yesterday status post right total shoulder arthroplasty. Pharmacy was consulted postoperatively for assistance with inpatient glycemic management. * Of note, patient did not received any steroids perioperatively. * BSGs have been well controlled with the exception of 205 and 151 mg/dL yesterday afternoon when patient received an amp of D50 for a BSG of 70 mg/dL and being symptomatic with confusion. * Has only required 4 units of insulin total - all Novolog * Loosened correctional insulin slightly today and BSGs have been 76-87 mg/dL * Possible discharge today PLAN FOR INPATIENT GLYCEMIC CONTROL: * Hold outpatient oral diabetes medications * Basal insulin * None * Bolus insulin * NovoLog per scale ACHS or Q6hrs while NPO * Goal Range: Low 100 mg/dL - High 140 mg/dL * Correction Factor: 35 mg/dL/unit * Nutritional / Prandial insulin per carb ratio of 1 unit per 12 grams CHO consumed PLAN FOR DISCHARGE: * HbA1c is at goal for this patient. Continue Glimepiride at discharge as long as patient is not experiencing hypoglycemia at home.
--- NOTE | 2021-02-06 16:36 | XRay Report ---
XR chest 1V portable CLINICAL HISTORY: Hypoxia COMPARISON STUDY: 09/19/2020 FINDINGS: The heart is enlarged. There is a reverse total right shoulder arthroplasty. There is gas p resent within the soft tissues consistent with recent surgery. There is minor basilar atelectasis. Th ere is no lobar consolidation. There are no pleural effusions. There is no overt failure[ IMPRESSION: 1. Cardiomegaly 2. Minor basilar atelectasis ACT 112: Negative or not required by law. Electronically signed by: Deric Harp M.D. 02/06/2021 4:35 PM
--- NOTE | 2021-02-06 16:43 | Hospitalist Consultation ---
Date of Consultation February 06, 2021 Assessment & Plan (1) Rotator cuff arthropathy of right shoulder: Right shoulder arthroplasty 02/05/[address] Garcia POD #1 Continue ice and sling Further management per orthopedics Consider short term inpatient rehab before returning home (2) Acute respiratory failure with hypoxia: Patient with history of COPD and obstructive sleep apnea managed by Dr. Tomlin in [place] 6-minute walk test today. Patient unable to complete due to weakness. Desaturated to 75% with exertion and 85% with rest Supplemental oxygen 3 L/min with exertion and 1 L/min with rest Chest x-ray with atelectasis and no overt failure Check orthostatic pressures. If okay, give 20 mg of IV furosemide x1 dose Check echocardiogram in the morning No chest pain or tightness with exertion Most likely acute on chronic respiratory failure Serum carbon dioxide 28 mmol/L. No indication for ABG at this time but will check a VBG in the morning (3) COPD (chronic obstructive pulmonary disease): Follows with Dr. Tomlin in [place] Patient reports history of remote pulmonary function testing Currently only on albuterol rescue inhaler and Singulair No bronchospasm on exam We will not start any other empiric inhalers at this time as patient does not have bronchospasm and unclear PFTs Refer back to Dr. Tomlin on discharge (4) Sleep apnea: Obstructive sleep apnea with probable obesity hypoventilation syndrome providing some restrictive component Patient was noncompliant and CPAP was removed from home Mallampati score of 4 Atelectasis on chest x-ray Refer back to Dr. Tomlin on discharge Continue supplemental O2 1 L at rest for now (5) Pulmonary asbestosis: Outpatient management with Dr. Tomlin (6) CAD (coronary artery disease): Acute [place] in 2016 History of cardiac catheterization with PCI with stent Currently not on anticoagulation or antiplatelet therapy at home On aspirin here Continue atorvastatin, lisinopril, bisoprolol Echocardiogram 1 year ago with hypokinesis and reduced left ventricular ejection fraction of 40 to 45% and aortic sclerosis (7) CHF (congestive heart failure): No overt failure on examination, but did receive IV fluids overnight and some of his hypoxia could be from pulmonary edema Check BNP Check orthostatic pressures. If okay, give furosemide 20 mg IV x1 Hold spironolactone as patient has potassium level of 5.0 (8) HTN (hypertension): Hemodynamically stable Continue home medications No chest pain or tightness (9) Hyperlipidemia: Continue atorvastatin (10) Hypothyroidism: Continue levothyroxine (11) Idiopathic polyneuropathy: No acute complaints. Continue gabapentin (12) Iron deficiency anemia: Continue ferrous sulfate 325 mg p.o. daily Hemoglobin 11 g/Ovi (13) DM type 2 (diabetes mellitus, type 2): Hemoglobin A1c on 01/26/2021 was 5.5% Noninsulin-dependent Home medications include glimepiride Continue sliding scale insulin with NovoLog while inpatient Continue diabetic, heart healthy diet (14) Bipolar disorder: Stable Continue home Lamictal, sertraline, Seroquel (15) DVT prophylaxis: SCDs, aspirin 325 mg once daily Disposition-continued stay on medical/surgical floor overnight, will need reevaluation to see if needs rehab tomorrow Will need home oxygen ordered through case management in the morning if going home rather than to rehab Supervising Physician Co-Signing Physician Notes PA Supervision Note: I personally saw and examined the patient. I verified all marcelo points and agree with REHANA Phillips with the following exceptions and/or additions: Patient seen after was noted to be hypoxic with exertion with physical therapy today. He denies any shortness of breath even when he became hypoxic he was un aware of this. Denies chest pain or shortness of breath, denies nausea or abdominal pain. He is having pain in the right shoulder. History and ROS reviewed as above Vitals reviewed Gen: AAOx3, NAD, obese HEENT: Anicteric sclerae, EOMI CV: RRR no mgr nl S1S2 Pulm: Diminished breath sounds at the bases, no wcr Abd: +BS soft NT ND no masses or hernias Ext: No edema, RUE in sling with ice pack over shoulder, dressing in place over right shoulder Skin: No rashes, warm/dry Neuro: Full strength throughout except right upper extremity strength not tested Laboratory values reviewed 75-year-old male here with history as above, here with acute respiratory failure with hypoxia which is likely chronic in nature as patient is unaware. With a history of lung disease, CHF. Diuresed with IV Lasix Will need oxygen to go home with but PT is now recommending short-term rehab stay. Continue to monitor History of Present Illness Reason for Consultation: Shortness of breath with ambulation Requesting Physician: Kb Stone PA-C Attending Physician: Tenzin Garcia History of Present Illness This is a 75-year-old male that presented for shoulder surgery with Dr. Garcia.He was planning on being discharged today but developed shortness of breath and an SaO2 of 88% with physical therapy. A consult was placed for medical management for clearance for discharge. The patient has a past medical history including CHF, asbestosis, COPD, obstructive sleep apnea, idiopathic polyneuropathy, cervical radicular pain, hypertension, hyperlipidemia, muscle spasm, BPH, iron deficiency anemia, diabetes mellitus type 2 on oral control agents, hypothyroidism, depression, [place] obesity (BMI 34.0 kg/m), history of tobacco abuse (quit 45 years ago). The patient presented and had rotator cuff arthropathy of the right shoulder. He underwent right reverse total shoulder arthroplasty and open biceps tendodesis with Dr. Garcia 02/05/2021. He was doing well when he had physical therapy but developed some shortness of breath and an SaO2 of 88% on room air. He rec overed quickly with rest. The patient does have a history of COPD and asbestosis and follows with Dr. Tomlin in [place]. He is on an albuterol inhaler as well as Singulair. He previously was on Advair Diskus per 's description but this has been stopped. He had pulmonary function testing years ago and results are unknown. Patient also has obstructive sleep apnea and was on CPAP but this was repossessed due to noncompliance. Patient has truncal obesity and elevated BMI. He appears to have obesity hypoventilation syndrome in addition to obstructive sleep apnea. At the time of documented hypoxia and shortness of breath, patient denied any chest pain or tightness with exertion. Documentation reviewed and patient does have a history of echocardiogram from 12/04/2019 which revealed left ventricular ejection fraction decreased to 40 to 45%. There was also mention of mild diffuse hypokinesis and left ventricle cavity size dilation. Aortic valve revealed thickening consistent with sclerosis but no evidence of significant stenosis. Patient currently has no shortness of breath and no chest pain. He has no fever or chills. He denies any GERD or cough. He has no other acute complaints. Allergies Allergy/AdvReac Type Severity Reaction Status Date / Time morphine AdvReac n/v, Verified 02/05/21 09:48 hypoventilation Home Medications Medication Instructions Recorded Confirmed Type atorvastatin 40 mg PO PM 09/17/20 02/05/21 History bisoprolol fumarate 5 mg PO QAM 09/17/20 02/05/21 History donepezil 5 mg PO QPM 09/17/20 02/05/21 History fenofibrate nanocrystallized 145 mg PO QAM 09/17/20 02/05/21 History [Tricor] gabapentin 1,200 mg PO HS 09/17/20 02/05/21 History glimepiride 2 mg PO QAM 09/17/20 02/05/21 History levothyroxine 75 mcg PO QAM 09/17/20 02/05/21 History lisinopril 10 mg PO QAM 09/17/20 02/05/21 History montelukast 10 mg PO QAM 09/17/20 02/05/21 History quetiapine 300 mg PO HS 09/17/20 02/05/21 History ropinirole 2 mg PO QPM 09/17/20 02/05/21 History sertraline 100 mg PO HS 09/17/20 02/05/21 History spironolactone 12.5 mg PO QAM 09/17/20 02/05/21 History dutasteride 0.5 mg PO QAM 02/04/21 02/05/21 History silodosin [Rapaflo] 8 mg PO QAM 02/04/21 02/05/21 History Vitamin D3 1 tab PO DAILY 02/05/21 02/05/21 History acetaminophen [Tylenol Extra 500 mg PO Q6H 02/05/21 02/05/21 History Strength] cyclobenzaprine 5 mg PO HS 02/05/21 02/05/21 History ferrous sulfate 325 mg PO DAILY 02/05/21 02/05/21 History lamotrigine 200 mg PO BID 02/05/21 02/05/21 History Patient History Medical History (Updated 02/06/21 @ 21:20 by Joselyn Cantu MD) AAA (abdominal aortic aneurysm) s/p PEVAR, follows with Dr. Peng, vascular. Per most recent vascular note, 05/09/20, [place] aneurysm sac measures 4.8 x 3.4 cm, no evidence of endoleak. Anxiety Bipolar disorder BPH (benign prostatic hyperplasia) CAD (coronary artery disease) stent x1 (2015) CHF (congestive heart failure) COPD (chronic obstructive pulmonary disease) Degenerative disc disease Dementia forgetful, is POA (pt signs his own consents per PAT RN interview) Depression DM type 2 (diabetes mellitus, type 2) NIDDM Hearing deficit History of kidney stones HTN (hypertension) Hyperlipidemia Hypothyroidism Iron deficiency anemia LBBB (left bundle branch block) chronic Myocardial infarction 2016 Osteoarthritis Pulmonary asbestosis follows with Dr. Tomlin () Restless leg syndrome Sleep apnea non compliant with CPAP Surgical History (Updated 02/06/21 @ 17:02 by Harpreet Phillips PA-C) History of arthroscopy of right knee History of cardiac catheterization stent x1 (2015) History of colonoscopy History of repair of left rotator cuff History of tooth extraction History of transurethral resection of prostate S/P aneurysm repair PEVAR/multiple aneurym repairs (follows with vascular) Family History Other No family history of adverse response to anesthesia Social History Smoking Status: Former smoker Smoking End Date: 45 years ago; Second Hand Exposure: No; Do You Dip or Chew Tobacco: No; Tobacco Cessation Education Requested by Patient: No Hx Alcohol Use: No Hx Substance Use: No Preferred Language: Ukrainian Communication Ability: Effective Nurse Instructor Required: No Beliefs That Will Affect Care: None marital status: Current Living Situation: Spouse Other Information That Helps Us Care for You: No Feels Safe at Home: Yes Safety Concerns: Feels Safe At This Time Assistive Devices: Denture - Upper, Denture - Lower and Glasses Review of Systems Review of Systems: All systems reviewed & are unremarkable except as noted in HPI & below Physical Exam Physical Exam: GENERAL : No acute distress EYES: No icterus, gaze conjugate NOSE: No evidence of epistaxis MOUTH: No lesions or candidiasis. Class IV Mallampati score NECK: Supple. No appreciation of bruits or stridor. LUNGS: Bilateral rales. No bronchospasm. No rhonchi appreciated. Good inspirational effort. HEART: Distant, regular, rate controlled ABDOMEN: Soft, NT, ND, BS Present EXTREMITIES: Trace bilateral, LE edema, pedal pulses intact and equal bilaterally NEURO: A&OX3 Results & Data Results & Data ([facility]) Vital Signs (Past 12 Hours) Vital Signs Temp Pulse Resp BP Pulse Ox 02/06/21 13:52 88 L 02/06/21 13:06 37.5 C 82 18 113/66 92 02/06/21 11:14 91 02/06/21 09:13 37.2 C 74 18 132/72 91 02/06/21 07:14 37.2 C 74 18 132/72 91 Laboratory Results 02/06/21 05:39 02/06/21 05:39 Diagnostic Findings XR chest 1V portable CLINICAL HISTORY: Hypoxia COMPARISON STUDY: 09/19/2020 FINDINGS: The heart is enlarged. There is a reverse total right shoulder arthroplasty. There is gas present within the soft tissues consistent with recent surgery. There is minor basilar atelectasis. There is no lobar consolidation. There are no pleural effusions. There is no overt failure[ IMPRESSION: 1. Cardiomegaly 2. Minor basilar atelectasis Electronically signed by: Deric Harp M.D. 02/06/2021 4:35 PM PG Care Time/CCT Total # of Minutes Spent Total Time Spent with Patient: Total time spent is greater than 50% in co ordination of care (as documented) at patient's floor/unit and/or counseling patient: [place] [address] Inpt Consult Level 5 Patient Type New Diagnoses Rotator cuff arthropathy of right shoulder M12.811 Acute respiratory failure with hypoxia J96.01 COPD (chronic obstructive pulmonary disease) J44.9 COPD type: unspecified COPD Sleep apnea G47.33 Sleep apnea type: obstructive Pulmonary asbestosis J61 CAD (coronary artery disease) I25.10 Associated angina: without angina Coronary Disease-Associated Artery/Lesion type: [place] artery [place] vs. transplanted heart: [place] heart CHF (congestive heart failure) I50.9 HTN (hypertension) I10 Hypertension type: essential hypertension Hyperlipidemia E78.5 Hyperlipidemia type: unspecified Hypothyroidism E03.9 Hypothyroidism type: acquired Idiopathic polyneuropathy G60.9 Iron deficiency anemia D50.9 Iron deficiency anemia type: unspecified iron deficiency DM type 2 (diabetes mellitus, type 2) E11.9 Diabetes mellitus complication status: without complication Diabetes mellitus terminal manager insulin use: without terminal manager use Bipolar disorder F31.9 DVT prophylaxis Z29.9 Time Spent (min) 60 (1) Sleep apnea Sleep apnea type: obstructive Qualified Code(s): G47.33 - Obstructive sleep apnea (adult) (pediatric) (2) DM type 2 (diabetes mellitus, type 2) Diabetes mellitus complication status: without complication Diabetes mellitus terminal manager insulin use: without correction use Qualified Code(s): E11.9 - Type 2 diabetes mellitus without complications (3) CAD (coronary artery disease) Associated angina: without angina Coronary Disease-Associated Artery/Lesion type: [place] artery [place] vs. transplanted heart: [place] heart Qualified Code(s): I25.10 - Atherosclerotic heart disease of [place] coronary artery without angina pectoris (4) Hyperlipidemia Hyperlipidemia type: unspecified Qualified Code(s): E78.5 - Hyperlipidemia, unspecified (5) Hypothyroidism Hypothyroidism type: acquired Qualified Code(s): E03.9 - Hypothyroidism, unspecified (6) Iron deficiency anemia Iron deficiency anemia type: unspecified iron deficiency Qualified Code(s): D50.9 - Iron deficiency anemia, unspecified (7) COPD (chronic obstructive pulmonary disease) COPD type: unspecified COPD Qualified Code(s): J44.9 - Chronic obstructive pulmonary disease, unspecified (8) HTN (hypertension) Hypertension type: essential hypertension Qualified Code(s): I10 - Essential (primary) hypertension
[2021-02-06] MEDS ORDERED: FUROSEMIDE 40 MG in SYRINGE 0 ML IV ONE (17:00)
[2021-02-06] MEDS ORDERED: FUROSEMIDE 20 MG in SYRINGE 0 ML IV ONE (18:07)
[2021-02-06] MEDS ORDERED: FUROSEMIDE 40 MG/4 ML VIAL IV STA (18:08)
[2021-02-06] MEDS: rOPINIRole HCL 1 MG TABLET PO SCH (21:12)
[2021-02-06] MEDS: DONEPEZIL HCL 5 MG TAB PO SCH (21:12)
[2021-02-06] MEDS: QUEtiapine FUMARATE 300 MG TABLET PO SCH (21:12)
[2021-02-06] MEDS: SENNA 8.6 MG TAB PO SCH (21:13)
[2021-02-06] MEDS: SERTRALINE HCL 100 MG TABLET PO SCH (21:13)
[2021-02-06] MEDS: GABAPENTIN 600 MG TAB PO SCH (21:14)
[2021-02-06] MEDS: ATORVASTATIN 40 MG TAB PO SCH (21:14)
[2021-02-07 05:36] LABS: Base Excess VBG 0.6 mEq/L; Oxygen Saturation VBG 92.2 %; pH VBG 7.32 (7.36-7.41)
[2021-02-07] MEDS: ACETAMINOPHEN 500 MG TAB PO SCH ×4 (05:38→23:52)
[2021-02-07] MEDS: LEVOTHYROXINE SODIUM 75 MCG TABLET PO SCH (05:38)
[2021-02-07 06:42] LABS: Calcium 8.4 mg/dl (8.5-10.1); Creatinine Clr Calc Pharmacy 49.9 ml/min; Est GFR (African American) 46.3 ml/min; Potassium 4.5 mmol/L (3.5-5.1)
[2021-02-07] MEDS: DOCUSATE SODIUM 100 MG CAP PO SCH ×2 (07:48→20:16)
[2021-02-07] MEDS: lamoTRIgine 100 MG TAB PO SCH ×2 (07:48→20:15)
[2021-02-07] MEDS: ASPIRIN 325 MG ECTAB PO SCH (07:48)
[2021-02-07] MEDS: FENOFIBRATE NANOCRYSTALLIZED 145 MG TABLET PO SCH (07:49)
[2021-02-07] MEDS: BISOPROLOL FUMARATE 5 MG TAB PO SCH (07:49)
[2021-02-07] MEDS: MULTIVITAMIN TAB PO SCH (07:49)
[2021-02-07] MEDS: FERROUS SULFATE 325 MG TAB PO SCH (07:49)
[2021-02-07] MEDS: CHOLECALCIFEROL 400 UNITS 10 MCG TAB PO SCH (07:49)
[2021-02-07] MEDS: MONTELUKAST SODIUM 10 MG TABLET PO SCH (07:50)
[2021-02-07] MEDS: lisinopril 10 MG TAB PO SCH (07:50)
[2021-02-07] MEDS: oxyCODONE HCL IR 5 MG TAB (IMMEDIATE RELEASE) PO PRN (07:51)
[2021-02-07] MEDS: INSULIN ASPART 100 UNITS/ML 3 ML PEN SC SCH ×4 (07:55→21:10)
--- NOTE | 2021-02-07 08:41 | Orthopedic Progress Note ---
Date of Service February 07, 2021 Assessment & Plan (1) Status post reverse arthroplasty of right shoulder: Admission and Anticipated Discharge Date Admission Date: February 05, 2021 75 yo male stable POD #1 s/p right reverse TSA, hypoxia noted yesterday, d/c held 1. Med management 2. DVT prophylaxis- ASA, SCDs 3. PT/OT 4. D/C planning- home w/ OPPT vs inpt rehab when stable per medicine Subjective Pt resting in chair, denies complaints of CP, SOB, pain controlled Physical Exam Physical Exam: Silverlon dressing in place, fingers mobile, NVI Results & Data ([facility]) Vital Signs (Past 12 Hours) Vital Signs Temp Pulse Pulse Resp BP Pulse Ox 02/07/21 07:44 69 97/60 L 94 02/07/21 06:10 37.1 C 69 16 97/57 L 94 02/06/21 22:21 37.4 C 80 16 127/66 93 Laboratory Results 02/07/21 02/07/21 02/07/21 Range/Units 06:09 05:24 05:24 VBG pH 7.32 L (7.36-7.41) VBG pCO2 55 H (38-50) mmHg VBG pO2 60 mmHg VBG HCO3 28 mmol/L VBG O2 Saturation 92.2 % VBG Base Excess 0.6 mEq/L Barometric Pressure 736.8 mm/Hg Sodium 136 (136-145) mmol/L Potassium 4.5 (3.5-5.1) mmol/L Chloride 105 (98-107) mmol/L Carbon Dioxide 29 (21-32) mmol/L Anion Gap 2.0 L (3-11) BUN 27 H (7-18) mg/dl Creatinine 1.67 H D (0.6-1.4) mg/dl Est Cr Clr Drug Dosing 49.9 ml/min Est GFR ( Amer) 46.3 ml/min Est GFR (Non-Af Amer) 40.0 ml/min BUN/Creatinine Ratio 16.0 (10-20) Glucose 114 H (70-99) mg/dl POC Glucose 107 H (70-99) mg/dl Calcium 8.4 L (8.5-10.1) mg/dl NT-Pro-B Natriuret Pep 368 (0-900) pg/ml Hepatitis C Ab Screen (Neg) 02/06/21 02/06/21 02/06/21 Range/Units 20:44 16:58 12:03 VBG pH (7.36-7.41) VBG pCO2 (38-50) mmHg VBG pO2 mmHg VBG HCO3 mmol/L VBG O2 Saturation % VBG Base Excess mEq/L Barometric Pressure mm/Hg Sodium (136-145) mmol/L Potassium (3.5-5.1) mmol/L Chloride (98-107) mmol/L Carbon Dioxide (21-32) mmol/L Anion Gap (3-11) BUN (7-18) mg/dl Creatinine (0.6-1.4) mg/dl Est Cr Clr Drug Dosing ml/min Est GFR ( Amer) ml/min Est GFR (Non-Af Amer) ml/min BUN/Creatinine Ratio (10-20) Glucose (70-99) mg/dl POC Glucose 101 H 78 87 (70-99) mg/dl Calcium (8.5-10.1) mg/dl NT-Pro-B Natriuret Pep (0-900) pg/ml Hepatitis C Ab Screen (Neg) 02/06/21 Range/Units 05:39 VBG pH (7.36-7.41) VBG pCO2 (38-50) mmHg VBG pO2 mmHg VBG HCO3 mmol/L VBG O2 Saturation % VBG Base Excess mEq/L Barometric Pressure mm/Hg Sodium (136-145) mmol/L Potassium (3.5-5.1) mmol/L Chloride (98-107) mmol/L Carbon Dioxide (21-32) mmol/L Anion Gap (3-11) BUN (7-18) mg/dl Creatinine (0.6-1.4) mg/dl Est Cr Clr Drug Dosing ml/min Est GFR ( Amer) ml/min Est GFR (Non-Af Amer) ml/min BUN/Creatinine Ratio (10-20) Glucose (70-99) mg/dl POC Glucose (70-99) mg/dl Calcium (8.5-10.1) mg/dl NT-Pro-B Natriuret Pep (0-900) pg/ml Hepatitis C Ab Screen Neg (Neg)
--- NOTE | 2021-02-07 12:15 | Hospitalist Progress Note ---
Date of Service February 07, 2021 Assessment & Plan (1) Acute kidney injury: Cr baseline 1.2 to 1.3. 1.67 today. Perioperative hypotension, diuresis, mild blood loss (only 1gm drop, however) - all could have contributing. This is in setting of ZAKIA use. HOLD ZAKIA. HOLD aldactone. BMP am. Fluid bolus given today. (2) Hypotension: suspect 2nd to diuresis with IV lasix yesterday. no evidence of volume overload at this time. Give fluid back - 500cc bolus x 1. improved BP following such. HOLD ZAKIA. HOLD aldactone. HOLD beta misael. trend the BPs. if it persists consider cortisol level. check CBC am. (3) Rotator cuff arthropathy of right shoulder: POD #2 s/p reverse total shoulder arthroplasty. Management per ortho. (4) Acute respiratory failure with hypoxia: Per records has history of COPD, asbestosis, and DEWAYNE. Likely the former 2 are contributing to NC O2 requirement. Follows with Dr. oTmlin in [place]. 2-step ambulatory O2 test - 02/06 - showed need for 3 L NC O2 with exertion and 1 L with rest. O2 requirement discovered during this hospital stay likely is chronic, however. Has mild hypercarbia on VBG today, likely due to COPD/DEWAYNE. CXR 02/06 wnl. Exam fairly unremarkable today. Echo with preserved EF and normal IVC. (5) COPD (chronic obstructive pulmonary disease): NO exacerbation at this time. Is not on meds at home for such. (6) Sleep apnea: Previous noncompliance with CPAP by report. Refer back to Dr. Tomlin on discharge. Continue NC O2 during sleep; will help with desaturations but will not prevent apnea. (7) [facility] (8) CAD (coronary artery disease): Acute [place] in 2016 Continue atorvastatin and asa. HOLD lisinopril, bisoprolol due to hypotension. Previous Echocardiogram 2019 with EF 40 to 45%. Repeat echo today EF 55-60%. No regional wall motion abnormalities. No ischemic symptoms post-op. (9) CHF (congestive heart failure): No evidence of HFpEF decompensation. Did receive IV lasix yesterday but creatinine varsha with such. No further diuretics. Holding aldactone due to JOSE. (10) HTN (hypertension): Relative hypotension today -- HOLD ZAKIA, HOLD beta misael, HOLD aldactone. (11) Hyperlipidemia: (12) Hypothyroidism: Check TSH in am; cont synthroid in meantime. (13) Idiopathic polyneuropathy: gabapentin 1200mg HS. if creatinine worsens this dose will need adjustment. (14) Iron deficiency anemia: H/H acceptable at this time. (15) DM type 2 (diabetes mellitus, type 2): BSGs w/ excellent control post-op. Cont novolog w/ meals/HS. (16) Bipolar disorder: Continue home Lamictal, sertraline, Seroquel (17) DVT prophylaxis: asa daily would not d/c today due to JOSE and hypotension home with HH? rehab? Admission and Anticipated Discharge Date Admission Date: February 05, 2021 Subjective patient sitting in chair eating lunch other than right shoulder pain he offered no complaints he reported that his asbestosis was diagnosed in [place] years ago he admits to prior tobacco use "years ago" when asked if he was ever dx with COPD by Dr Tomlin in [place] he stated he didn't know denied any chest pain denied dyspnea does endorse frequent cough at baseline no abd pain no nausea +flatus eating fine Review of Systems Constitutional: no fatigue and no anorexia Respiratory: no dyspnea Cardiovascular: no chest pain and no lightheadedness Gastrointestinal: no abdominal pain Physical Exam Constitutional: + obese; no acute distress ENMT: external ear and nose normal, oropharynx normal Respiratory: no respiratory distress Auscultation: + wheezes (occasional b/l); no crackles Cardiovascular: Rate/Rhythm: regular rate and regular rhythm Heart Sounds: normal S1 and normal S2; no murmur Vessels: posterior tibial pulses present and dorsalis pedis pulses present; no JVD Extremities: no edema Gastrointestinal (Abdomen): normal bowel sounds, soft, nontender, no hepatosplenomegaly Musculoskeletal: right shoulder - dressings intact, sling in place Neurologic: handgrip b/l 5/5 Psychiatric: Orientation: alert, oriented to person and oriented to place Results & Data Results & Data ([facility]) Vital Signs (Past 12 Hours) Vital Signs Temp Pulse Pulse Resp BP Pulse Ox 02/07/21 09:35 68 92/57 L 94 02/07/21 07:44 69 97/60 L 94 02/07/21 06:10 37.1 C 69 16 97/57 L 94 Laboratory Results Laboratory Results - last 24 hr 02/06/21 02/06/21 02/07/21 16:58 20:44 05:24 VBG pH VBG pCO2 VBG pO2 VBG HCO3 VBG O2 Saturation VBG Base Excess Barometric Pressure Sodium 136 Potassium 4.5 Chloride 105 Carbon Dioxide 29 Anion Gap 2.0 L BUN 27 H Creatinine 1.67 H D Est Cr Clr Drug Dosing 49.9 Est GFR ( Amer) 46.3 Est GFR (Non-Af Amer) 40.0 BUN/Creatinine Ratio 16.0 Glucose 114 H POC Glucose 78 101 H Calcium 8.4 L NT-Pro-B Natriuret Pep 368 02/07/21 02/07/21 02/07/21 05:24 06:09 11:59 VBG pH 7.32 L VBG pCO2 55 H VBG pO2 60 VBG HCO3 28 VBG O2 Saturation 92.2 VBG Base Excess 0.6 Barometric Pressure 736.8 Sodium Potassium Chloride Carbon Dioxide Anion Gap BUN Creatinine Est Cr Clr Drug Dosing Est GFR ( Amer) Est GFR (Non-Af Amer) BUN/Creatinine Ratio Glucose POC Glucose 107 H 100 H Calcium NT-Pro-B Natriuret Pep PG Care Time/CCT Total # of Minutes Spent Total Time Spent with Patient: Total time spent is greater than 50% in coordination of care (as documented) at patient's floor/unit and/or counseling patient: Coding Level of Care Code 05032 Subseq Hosp Care Lvl 3 Diagnoses Acute kidney injury N17.9 Hypotension I95.9 Rotator cuff arthropathy of right shoulder M12.811 Acute respiratory failure with hypoxia J96.01 COPD (chronic obstructive pulmonary disease) J44.9 COPD type: unspecified COPD Sleep apnea G47.33 Sleep apnea type: obstructive Pulmonary asbestosis J61 CAD (coronary artery disease) I25.10 Associated angina: without angina Coronary Disease-Associated Artery/Lesion type: [place] artery [place] vs. transplanted heart: [place] heart CHF (congestive heart failure) I50.9 HTN (hypertension) I10 Hypertension type: essential hypertension Hyperlipidemia E78.5 Hyperlipidemia type: unspecified Hypothyroidism E03.9 Hypothyroidism type: acquired Idiopathic polyneuropathy G60.9 Iron deficiency anemia D50.9 Iron deficiency anemia type: unspecified iron deficiency DM type 2 (diabetes mellitus, type 2) E11.9 Diabetes mellitus complication status: without complication Diabetes mellitus [facility] insulin use: without [facility] use Bipolar disorder F31.9 DVT prophylaxis Z29.9 (1) Sleep apnea Sleep apnea type: obstructive Qualified Code(s): G47.33 - Obstructive sleep apnea (adult) (pediatric) (2) DM type 2 (diabetes mellitus, type 2) Diabetes mellitus complication status: without complication Diabetes mellitus [facility] insulin use: without termite treater helper use Qualified Code(s): E11.9 - Type 2 diabetes mellitus without complications (3) CAD (coronary artery disease) Associated angina: without angina Coronary Disease-Associated Artery/Lesion type: [place] artery [place] vs. transplanted heart: [place] heart Qualified Code(s): I25.10 - Atherosclerotic heart disease of [place] coronary artery without angina pectoris (4) Hyperlipidemia Hyperlipidemia type: unspecified Qualified Code(s): E78.5 - Hyperlipidemia, unspecified (5) Hypothyroidism Hypothyroidism type: acquired Qualified Code(s): E03.9 - Hypothyroidism, unspecified (6) Iron deficiency anemia Iron deficiency anemia type: unspecified iron deficiency Qualified Code(s): D50.9 - Iron deficiency anemia, unspecified (7) COPD (chronic obstructive pulmonary disease) COPD type: unspecified COPD Qualified Code(s): J44.9 - Chronic obstructive pulmonary disease, unspecified (8) HTN (hypertension) Hypertension type: essential hypertension Qualified Code(s): I10 - Essential (primary) hypertension
--- NOTE | 2021-02-07 15:39 | XCELERA ---
[id number]
[2021-02-07] MEDS ORDERED: SODIUM CHLORIDE 0.9% 1000ML 500 ML IV ONE (18:37)
[2021-02-07] MEDS: GABAPENTIN 600 MG TAB PO SCH (20:14)
[2021-02-07] MEDS: SERTRALINE HCL 100 MG TABLET PO SCH (20:15)
[2021-02-07] MEDS: rOPINIRole HCL 1 MG TABLET PO SCH (20:15)
[2021-02-07] MEDS: DONEPEZIL HCL 5 MG TAB PO SCH (20:16)
[2021-02-07] MEDS: QUEtiapine FUMARATE 300 MG TABLET PO SCH (20:16)
[2021-02-07] MEDS: ATORVASTATIN 40 MG TAB PO SCH (20:16)
[2021-02-07] MEDS: SENNA 8.6 MG TAB PO SCH (20:17)
[2021-02-07 21:54] LABS: Hematocrit (blood only) 34.5 % (42-52); Hemoglobin 10.3 g/dL (14.0-18.0); Mean Corpuscular Hemoglobin 29.3 pg (25-34); Mean Corpuscular Hgb Conc 29.9 g/dL (32-36); Mean Corpuscular Volume 98.3 fL (80-100); Mean Platelet Volume 10.4 fL (7.4-10.4); Platelet Count 169 K/uL (130-400); RDW Coefficient of Variation 15.9 % (11.5-14.5); RDW Standard Deviation 56.8 fL (36.4-46.3); Red Blood Count 3.51 M/uL (4.7-6.1)
[2021-02-08] MEDS: ACETAMINOPHEN 500 MG TAB PO SCH ×4 (05:39→23:06)
[2021-02-08] MEDS: LEVOTHYROXINE SODIUM 75 MCG TABLET PO SCH (05:40)
[2021-02-08 06:11] LABS: Calcium 8.5 mg/dl (8.5-10.1); Creatinine Clr Calc Pharmacy 39.8 ml/min; Est GFR (African American) 35.3 ml/min; Est GFR (Non-African American) 30.5 ml/min; Potassium 4.5 mmol/L (3.5-5.1)
[2021-02-08 06:21] LABS: Thyroid Stimulating Hormone 0.412 uIu/ml (0.300-4.500)
[2021-02-08] MEDS: ASPIRIN 325 MG ECTAB PO SCH (08:20)
[2021-02-08] MEDS: FENOFIBRATE NANOCRYSTALLIZED 145 MG TABLET PO SCH (08:21)
[2021-02-08] MEDS: DOCUSATE SODIUM 100 MG CAP PO SCH ×2 (08:21→20:11)
[2021-02-08] MEDS: CHOLECALCIFEROL 400 UNITS 10 MCG TAB PO SCH (08:21)
[2021-02-08] MEDS: MONTELUKAST SODIUM 10 MG TABLET PO SCH (08:22)
[2021-02-08] MEDS: lamoTRIgine 100 MG TAB PO SCH ×2 (08:22→20:11)
[2021-02-08] MEDS: FERROUS SULFATE 325 MG TAB PO SCH (08:22)
[2021-02-08] MEDS: MULTIVITAMIN TAB PO SCH (08:23)
[2021-02-08] MEDS: SODIUM CHLORIDE 0.9% 1000ML 1,000 ML IV SCH ×2 (08:24→18:17)
--- NOTE | 2021-02-08 08:32 | Orthopedic Progress Note ---
Date of Service February 08, 2021 Assessment & Plan (1) Status post reverse arthroplasty of right shoulder: Admission and Anticipated Discharge Date Admission Date: February 05, 2021 75 yo male stable POD #3 s/p right reverse TSA, hypotension improved over last 12 hours, continued elevated BUN/Cr 1. Med management- ordered IVF for JOSE 2. DVT prophylaxis- ASA, SCDs 3. PT/OT 4. D/C planning- home w/ OPPT. Discussed with pt. Pt still feels he can go home with assistance of and participate in OPPT. D/C when stable per medicine. Subjective Pt resting in chair, looks baseline, denies CP, SOB, pain controlled. D/C held yesterday due to hypotension, elevated BUN/Cr Physical Exam Physical Exam: Silverlon dressing in place, fingers mobile, NVI Results & Data ([facility]) Vital Signs (Past 12 Hours) Vital Signs Temp Pulse Resp BP Pulse Ox 02/08/21 07:31 36.9 C 67 16 139/61 93 02/07/21 22:12 36.9 C 74 16 116/67 93 Laboratory Results 02/08/21 02/08/21 02/07/21 Range/Units 08:05 05:18 21:43 WBC 6.80 (4.8-10.8) K/uL RBC 3.51 L (4.7-6.1) M/uL Hgb 10.3 L (14.0-18.0) g/dL Hct 34.5 L (42-52) % MCV 98.3 (80-100) fL MCH 29.3 (25-34) pg MCHC 29.9 L (32-36) g/dL RDW Std Deviation 56.8 H (36.4-46.3) fL RDW Coeff of Alex 15.9 H (11.5-14.5) % Plt Count 169 (130-400) K/uL MPV 10.4 (7.4-10.4) fL Sodium 138 (136-145) mmol/L Potassium 4.5 (3.5-5.1) mmol/L Chloride 107 (98-107) mmol/L Carbon Dioxide 29 (21-32) mmol/L Anion Gap 2.0 L (3-11) BUN 46 H D (7-18) mg/dl Creatinine 2.09 H D (0.6-1.4) mg/dl Est Cr Clr Drug Dosing 39.8 ml/min Est GFR ( Amer) 35.3 ml/min Est GFR (Non-Af Amer) 30.5 ml/min BUN/Creatinine Ratio 22.0 H (10-20) Glucose 88 (70-99) mg/dl POC Glucose 88 (70-99) mg/dl Calcium 8.5 (8.5-10.1) mg/dl TSH 0.412 (0.300-4.500) uIu/ml 02/07/21 02/07/21 02/07/21 Range/Units 20:22 17:09 11:59 WBC (4.8-10.8) K/uL RBC (4.7-6.1) M/uL Hgb (14.0-18.0) g/dL Hct (42-52) % MCV (80-100) fL MCH (25-34) pg MCHC (32-36) g/dL RDW Std Deviation (36.4-46.3) fL RDW Coeff of Alex (11.5-14.5) % Plt Count (130-400) K/uL MPV (7.4-10.4) fL Sodium (136-145) mmol/L Potassium (3.5-5.1) mmol/L Chloride (98-107) mmol/L Carbon Dioxide (21-32) mmol/L Anion Gap (3-11) BUN (7-18) mg/dl Creatinine (0.6-1.4) mg/dl Est Cr Clr Drug Dosing ml/min Est GFR ( Amer) ml/min Est GFR (Non-Af Amer) ml/min BUN/Creatinine Ratio (10-20) Glucose (70-99) mg/dl POC Glucose 111 H 91 100 H (70-99) mg/dl Calcium (8.5-10.1) mg/dl TSH (0.300-4.500) uIu/ml
[2021-02-08] MEDS: INSULIN ASPART 100 UNITS/ML 3 ML PEN SC SCH ×4 (09:17→21:30)
--- NOTE | 2021-02-08 10:26 | Hospitalist Progress Note ---
Date of Service February 08, 2021 Assessment & Plan (1) Acute kidney injury: Cr baseline 1.2 to 1.3. Increased to 2.09 today. BUN elevated at 46. Perioperative hypotension, diuresis, mild blood loss (only 1gm drop, however) - all could have contributing. This is in setting of ZAKIA use. ZAKIA has been held. BP stable at 139/61 today. Aldactone on hold. Start gentle hydration. NSS 100mls/hr. Check UA for casts to assess for ATN. Recheck BMP in AM. (2) Hypotension: Suspect 2nd to diuresis with IV lasix. BP improved to 139/61 this AM. Patient c/o dizziness. Orthostatic BPs did show a 10 point decrease in the diastolic pressure from sitting to standing yesterday. ? r/t dehydration. Cr and BUN worsening. Start IVF with gentle hydration today. HOLD ZAKIA. HOLD aldactone. HOLD beta misael. Continue to monitor. If it persists consider cortisol level. H&H dropped slightly to 10.3 and 34.5 this AM. Recheck in AM. (3) Status post reverse arthroplasty of right shoulder: POD #3 s/p reverse total shoulder arthroplasty. Management per ortho. (4) Acute respiratory failure with hypoxia: Per records has history of COPD, asbestosis, and DEWAYNE. Likely the former 2 are contributing to NC O2 requirement. Follows with Dr. Tomlin in [place]. 2-step ambulatory O2 test - 02/06 - showed need for 3 L NC O2 with exertion and 1 L with rest.- O2 sat 93% on 1L nasal cannula this morning. O2 requirement discovered during this hospital stay likely is chronic, however. Will need home O2 upon discharge. Has mild hypercarbia on VBG yesterday, likely due to COPD/DEWAYNE. CXR 02/06 wnl. Diminished lung sounds with expiratory wheezes on the left on exam today. Echo with preserved EF and normal IVC. (5) COPD (chronic obstructive pulmonary disease): NO exacerbation at this time. Stable. Is not on meds at home for such. (6) Sleep apnea: Previous noncompliance with CPAP by report. Refer back to Dr. Tomlin on discharge. Continue NC O2 during sleep; will help with desaturations but will not prevent apnea. (7) [facility]. (8) CAD (coronary artery disease): Acute [place] in 2016 Continue atorvastatin and asa. HOLD lisinopril, bisoprolol due to hypotension and JOSE. Previous Echocardiogram 2019 with EF 40 to 45%. Repeat echo today EF 55-60%. No regional wall motion abnormalities. No ischemic symptoms post-op. (9) CHF (congestive heart failure): No evidence of HFpEF decompensation. Did receive IV lasix, but creatinine varsha with such. No further diuretics. Holding aldactone due to JOSE. Will start gentle IVF hydration. (10) HTN (hypertension): Relative hypotension yesterday- improved this AM -- Continue to HOLD ZAKIA, HOLD beta misael, HOLD aldactone. (11) Hypothyroidism: TSH 0.412 this AM. Continue levothyroxine 75mcg daily. (12) Idiopathic polyneuropathy: gabapentin 1200mg HS. Cr worse today. Will renally adjust dose to 400mg PO BID for now. (13) Iron deficiency anemia: H/H acceptable at this time. Continue to monitor. (14) DM type 2 (diabetes mellitus, type 2): BSGs w/ excellent control post-op. Cont novolog w/ meals/HS. (15) Bipolar disorder: Continue home Lamictal, sertraline, Seroquel (16) DVT prophylaxis: ASA, SCDs Admission and Anticipated Discharge Date Admission Date: February 05, 2021 Supervising Physician Co-Signing Physician Notes Attending Attestation - Chart reviewed in detail, care plan d/w SUSIE Greene. I agree w/ the marcelo components of her documentation. Pt with worsening JOSE - CR now 2. Agree with gentle hydration. Cont to hold ZAKIA, diuretics, etc. Repeat BMP am. Marty Willis MD Subjective 75 yo male POD #3 s/p right reverse total shoulder arthroplasty. He reports his pain is a 5/10 this morning in the shoulder. Denies n/v. No BM over the past 2 days, but reports he is voiding without issue. He also c/o dizziness over the past day. He was noted to have a 10 point drop in his diastolic pressure from 60-50mmgHg from sitting to standing on orthostatic BPs yesterday. He is planning to do outpatient PT upon dischage. Review of Systems Constitutional: no fever and no chills Eyes: no worsening vision Ear, Nose, Mouth, Throat: + dizziness (dizziness ) Respiratory: no dyspnea Cardiovascular: no chest pain Gastrointestinal: no nausea and no vomiting Genitourinary: no dysuria and no hematuria Physical Exam Constitutional: + obese; no acute distress ENMT: Ears: no hearing impairment Neck: normal visual inspection Respiratory: Auscultation: + diminished lung sounds and + wheezes (expiratory wheezes on the left ) Cardiovascular: RRR, no murmur, no edema Gastrointestinal (Abdomen): Inspection/Auscultation: normal bowel sounds Percussion/Palpation: abdomen soft; abdomen nontender Psychiatric: A+Ox3, euthymic affect Results & Data Results & Data ([facility]) Vital Signs (Past 12 Hours) Vital Signs Temp Pulse Resp BP Pulse Ox 02/08/21 07:31 36.9 C 67 16 139/61 93 PG Care Time/CCT Total # of Minutes Spent Total Time Spent with Patient: Total time spent is greater than 50% in coordination of care (as documented) at patient's floor/unit and/or counseling patient: Coding Level of Care Code 02796 Subseq Hosp Care Lvl 2 Medical Decision Making Moderate Complexity Diagnoses Acute kidney injury N17.9 Hypotension I95.9 Status post reverse arthroplasty of right shoulder Z96.611 Acute respiratory failure with hypoxia J96.01 COPD (chronic obstructive pulmonary disease) J44.9 COPD type: unspecified COPD Sleep apnea G47.33 Sleep apnea type: obstructive Pulmonary asbestosis J61 CAD (coronary artery disease) I25.10 Associated angina: without angina Coronary Disease-Associated Artery/Lesion type: [place] artery [place] vs. transplanted heart: [place] heart CHF (congestive heart failure) I50.9 HTN (hypertension) I10 Hypertension type: essential hypertension Hypothyroidism E03.9 Hypothyroidism type: acquired Idiopathic polyneuropathy G60.9 Iron deficiency anemia D50.9 Iron deficiency anemia type: unspecified iron deficiency DM type 2 (diabetes mellitus, type 2) E11.9 Diabetes mellitus complication status: without complication Diabetes mellitus ad terminal makeup operator insulin use: without care home use Bipolar disorder F31.9 DVT prophylaxis Z29.9 (1) Sleep apnea Sleep apnea type: obstructive Qualified Code(s): G47.33 - Obstructive sleep apnea (adult) (pediatric) (2) DM type 2 (diabetes mellitus, type 2) Diabetes mellitus complication status: without complication Diabetes mellitus care home insulin use: without ad terminal makeup operator use Qualified Code(s): E11.9 - Type 2 diabetes mellitus without complications (3) CAD (coronary artery disease) Associated angina: without angina Coronary Disease-Associated Artery/Lesion type: [place] artery [place] vs. transplanted heart: [place] heart Qualified Code(s): I25.10 - Atherosclerotic heart disease of [place] coronary artery without angina pectoris (4) Hypothyroidism Hypothyroidism type: acquired Qualified Code(s): E03.9 - Hypothyroidism, unspecified (5) Iron deficiency anemia Iron deficiency anemia type: unspecified iron deficiency Qualified Code(s): D50.9 - Iron deficiency anemia, unspecified (6) COPD (chronic obstructive pulmonary disease) COPD type: unspecified COPD Qualified Code(s): J44.9 - Chronic obstructive pulmonary disease, unspecified (7) HTN (hypertension) Hypertension type: essential hypertension Qualified Code(s): I10 - Essential (primary) hypertension
[2021-02-08 13:02] LABS: Appearance Urine Clear (Clear); Bilirubin Urine Negative (Negative); Blood Urine Negative (Negative); Color Urine Yellow; Glucose Urine UA Negative (Negative); Ketones Urine Negative (Negative); Leukocyte Esterase Urine Negative (Negative); Nitrite Urine Negative (Negative); Protein Urine Negative (Negative); Specific Gravity Urine 1.018 (1.000-1.030); Urobilinogen Urine Negative (Negative)
--- NOTE | 2021-02-08 13:47 | Pharmacy Report ---
Glycemic Ortho Sign Off Note - Date of Service February 08, 2021 - Scope Glycemic Pharmacist consulted for glycemic control and to write orders per [facility] inpatient glycemic control protocol. - Objective Accuchecks BSG (last 24hrs):: 02/07/21 02/07/21 02/08/21 17:09 20:22 05:18 Glucose 88 POC Glucose 91 111 H 02/08/21 02/08/21 08:05 11:55 Glucose POC Glucose 88 101 H - Assessment * Pt is maintained on oral antidiabeticagent[s]as anoutpatient with excellent control per recent A1c * Oral agents are not recommended for inpatient use d/t drug interactions, changing PO intake, and difficulty titrating for acute hyper/hypoglycemia. * Recommended regimen for inpatient use is SQ insulin * Low stress weight based insulin dosing appropriate since patient has minimal risk factors for insulin resistance (i.e. no steroids). * Appropriate to DC insulin and resume outpatient antidiabetic regimen at discharge. WOULD RESUME HOME GLIMEPIRIDE ON DISCHARGE LONG PATIENT NOT REPORTING FREQUENT HYPOGLYCEMIA - Plan For Inpatient Glycemic Control * Basal insulin * Not needed based on A1c, pre-op BSGs, and minimal risk factors for insulin resistance * Bolus insulin * Utilize low stress weight based NovoLog parameters per scale ACHS - ONLY CORRECTION FACTOR ENTERED * Pharmacy has entered glycemic orders and is signing off of the glycemic consult. We will no longer be making adjustments to inpatient regimen. Please feel free to re-consult if needed. Thank you.
[2021-02-08] MEDS: oxyCODONE HCL IR 5 MG TAB (IMMEDIATE RELEASE) PO PRN (19:32)
[2021-02-08] MEDS: ATORVASTATIN 40 MG TAB PO SCH (20:08)
[2021-02-08] MEDS: QUEtiapine FUMARATE 300 MG TABLET PO SCH (20:10)
[2021-02-08] MEDS: rOPINIRole HCL 1 MG TABLET PO SCH (20:10)
[2021-02-08] MEDS: DONEPEZIL HCL 5 MG TAB PO SCH (20:10)
[2021-02-08] MEDS: SENNA 8.6 MG TAB PO SCH (20:11)
[2021-02-08] MEDS: SERTRALINE HCL 100 MG TABLET PO SCH (20:12)
[2021-02-08] MEDS: GABAPENTIN 400 MG CAP PO SCH (20:12)
[2021-02-09] MEDS: SODIUM CHLORIDE 0.9% 1000ML 1,000 ML IV SCH (03:40)
[2021-02-09] MEDS: ACETAMINOPHEN 500 MG TAB PO SCH ×2 (05:53→12:39)
[2021-02-09] MEDS: LEVOTHYROXINE SODIUM 75 MCG TABLET PO SCH (05:53)
[2021-02-09 06:13] LABS: Hematocrit (blood only) 32.4 % (42-52); Hemoglobin 10.1 g/dL (14.0-18.0); Mean Corpuscular Hemoglobin 29.5 pg (25-34); Mean Corpuscular Hgb Conc 31.2 g/dL (32-36); Mean Corpuscular Volume 94.7 fL (80-100); Platelet Count 182 K/uL (130-400); RDW Coefficient of Variation 15.7 % (11.5-14.5); RDW Standard Deviation 54.8 fL (36.4-46.3); Red Blood Count 3.42 M/uL (4.7-6.1); White Blood Count 4.57 K/uL (4.8-10.8)
[2021-02-09 06:45] LABS: BUN Creatinine Ratio 30.5 (10-20); Calcium 8.5 mg/dl (8.5-10.1); Creatinine Clr Calc Pharmacy 78.5 ml/min; Est GFR (African American) 80.3 ml/min; Est GFR (Non-African American) 69.3 ml/min; Potassium 4.6 mmol/L (3.5-5.1)
[2021-02-09] MEDS: MONTELUKAST SODIUM 10 MG TABLET PO SCH (08:51)
[2021-02-09] MEDS: GABAPENTIN 400 MG CAP PO SCH (08:51)
[2021-02-09] MEDS: DOCUSATE SODIUM 100 MG CAP PO SCH (08:51)
[2021-02-09] MEDS: CHOLECALCIFEROL 400 UNITS 10 MCG TAB PO SCH (08:51)
[2021-02-09] MEDS: FENOFIBRATE NANOCRYSTALLIZED 145 MG TABLET PO SCH (08:51)
[2021-02-09] MEDS: lamoTRIgine 100 MG TAB PO SCH (08:51)
[2021-02-09] MEDS: MULTIVITAMIN TAB PO SCH (08:52)
[2021-02-09] MEDS: ASPIRIN 325 MG ECTAB PO SCH (08:52)
[2021-02-09] MEDS: FERROUS SULFATE 325 MG TAB PO SCH (08:52)
[2021-02-09] MEDS: INSULIN ASPART 100 UNITS/ML 3 ML PEN SC SCH ×2 (08:53→12:37)
--- NOTE | 2021-02-09 10:15 | Hospitalist Progress Note ---
Date of Service February 09, 2021 Assessment & Plan (1) Rotator cuff arthropathy of right shoulder: Mr. Lopes is a 75-year-old male with a history of COPD, Sleep Apnea, CAD s/p [place] 2015, HFpEF, Hypertension, Dyslipidemia, and Type 2 Diabetes Mellitus who is now POD #4 s/p Right Reversed TSA complicated by JOSE and Hypotension. Patient states that he is feeling well has not had any further lightheadedness, and his blood pressure has returned to normal. Additionally his serum creatinine has re turned to baseline. Patient completed 2 step oxygen test today and does not require any supplemental oxygen. His surgical pain is controlled, and he feels he is ready to go home. Patient is stable from a medical standpoint to go home with outpatient Physical Therapy. (2) Hypotension: -- Resolved. -- BP's have been within normal limits over the past 2 and 1/2 days. (3) Acute kidney injury: -- Resolved. -- Serum Creatinine is 1.06 mg/dl today. -- Creatinine peaked at 2.09 mg/dl yesterday. (4) DM type 2 (diabetes mellitus, type 2): BSG's are controlled. -- Continue Glimepiride 2 mg daily. (5) Acute respiratory failure with hypoxia: Secondary to COPD, Sleep Apnea, and Opiates. -- Resolved. -- 2 Step O2 test was completed today, pt does not require supplemental O2. -- Encouraged compliance with CPAP. (6) CAD (coronary artery disease): CAD s/p [place] 2015 s/p Intracoronary stent. No angina pectoris or cardiac complaints. -- Continue Bisoprolol 5 mg daily. -- Continue Lisinopril 10 mg daily. -- Recommend Aspirin 81 mg daily. -- Continue Atorvastatin 40 mg daily. -- Continue Tricor 145 mg daily. (7) COPD (chronic obstructive pulmonary disease): -- Continue Singulair 10 mg daily. Admission and Anticipated Discharge Date Admission Date: February 05, 2021 Subjective Mr. Lopes is a 75-year-old male with a history of COPD, Sleep Apnea, CAD s/p [place] 2015, HFpEF, Hypertension, Dyslipidemia, and Type 2 Diabetes Mellitus who is now POD #4 s/p Right Reversed TSA complicated by JOSE and Hypotension. Patient offers no complaints today. He is sitting in a bedside chair with an ice pack on his shoulder. Shoulder is still sore from surgery. Patient ambulated in the hallway today and was able to do so without difficulty or problems. Patient has not had any further lightheadedness, dizziness, or f eelings of faintness. He does not get lightheaded when he stands up. Patient further denies any chest pain or angina. He denies any shortness of breath, unusual dyspnea exertion, orthopnea, or PND. He denies any palpitations or elevated heart rates. His serum Creatinine has returned to baseline. Completed 2 step O2 testing today -- patient does not require supplemental O2. He feels that he is ready to go home. Review of Systems Review of Systems: All systems reviewed & are unremarkable except as noted in Subjective Physical Exam Physical Exam: GENERAL: Patient in no acute distress, He is sitting in a bedside chair. HEENT: Head is atraumatic, normocephalic. EOM's intact. Facies symmetric. No perioral cyanosis. NECK: No JVD. JVP is not elevated. Carotid upstrokes are + 2 bilaterally. CHEST/LUNGS: Diminished breath sounds throughout, otherwise clear. No wheezes, rales, or crackles. CVS: S1 and S2 are regular without obvious murmurs, gallops, or rubs. PMI is nonplpable. No lifts, heaves, or thrills. No abdominal aortic or renal bruits. ABDOMINAL EXAM: Bowel sounds are present. No masses, organomegaly, or tenderness. EXTREMITIES: No clubbing or cyanosis. No edema. Intact radial pulses bilatera lly. RUE is in a sling. NEUROLOGIC EXAM: Patient is awake, alert, and oriented. Pleasant and cooperative. Answers questions appropriately. Speech is clear. Right drop foot. Gait was not assessed Results & Data Results & Data ([facility]) Vital Signs (Past 12 Hours) Vital Signs Temp Pulse Pulse Pulse Pulse Resp Resp 02/09/21 07:55 91 H 84 71 20 02/09/21 07:45 36.8 C 70 16 Resp Resp BP Pulse Ox Pulse Ox Pulse Ox Pulse Ox 02/09/21 07:55 16 16 91 93 95 02/09/21 07:45 129/72 97 Laboratory Results Laboratory Results - last 24 hr 02/08/21 02/08/21 02/08/21 11:55 12:58 17:13 WBC RBC Hgb Hct MCV MCH MCHC RDW Std Deviation RDW Coeff of Alex Plt Count MPV Sodium Potassium Chloride Carbon Dioxide Anion Gap BUN Creatinine Est Cr Clr Drug Dosing Est GFR ( Amer) Est GFR (Non-Af Amer) BUN/Creatinine Ratio Glucose POC Glucose 101 H 91 Calcium Urine Color Yellow Urine Appearance Clear Urine pH 5.0 Ur Specific [place] 1.018 Urine Protein Negative Urine Glucose (UA) Negative Urine Ketones Negative Urine Blood Negative Urine Nitrite Negative Urine Bilirubin Negative Urine Urobilinogen Negative Ur Leukocyte Esterase Negative 02/08/21 02/09/21 02/09/21 20:37 06:03 06:03 WBC 4.57 L RBC 3.42 L Hgb 10.1 L Hct 32.4 L MCV 94.7 MCH 29.5 MCHC 31.2 L RDW Std Deviation 54.8 H RDW Coeff of Alex 15.7 H Plt Count 182 MPV 10.0 Sodium 140 Potassium 4.6 Chloride 111 H Carbon Dioxide 28 Anion Gap 2.0 L BUN 32 H Creatinine 1.06 Est Cr Clr Drug Dosing 78.5 Est GFR ( Amer) 80.3 Est GFR (Non-Af Amer) 69.3 BUN/Creatinine Ratio 30.5 H Glucose 81 POC Glucose 130 H Calcium 8.5 Urine Color Urine Appearance Urine pH Ur Specific [place] Urine Protein Urine Glucose (UA) Urine Ketones Urine Blood Urine Nitrite Urine Bilirubin Urine Urobilinogen Ur Leukocyte Esterase 02/09/21 08:05 WBC RBC Hgb Hct MCV MCH MCHC RDW Std Deviation RDW Coeff of Alex Plt Count MPV Sodium Potassium Chloride Carbon Dioxide Anion Gap BUN Creatinine Est Cr Clr Drug Dosing Est GFR ( Amer) Est GFR (Non-Af Amer) BUN/Creatinine Ratio Glucose POC Glucose 87 Calcium Urine Color Urine Appearance Urine pH Ur Specific [place] Urine Protein Urine Glucose (UA) Urine Ketones Urine Blood Urine Nitrite Urine Bilirubin Urine Urobilinogen Ur Leukocyte Esterase Medications Administered Medications atorvastatin 40 mg PO PM 09/17/20 [History Confirmed 02/05/21] bisoprolol fumarate 5 mg PO QAM 09/17/20 [History Confirmed 02/05/21] donepezil 5 mg PO QPM 09/17/20 [History Confirmed 02/05/21] fenofibrate nanocrystallized [Tricor] 145 mg PO QAM 09/17/20 [History Confirmed 02/05/21] gabapentin 1,200 mg PO HS 09/17/20 [History Confirmed 02/05/21] glimepiride 2 mg PO QAM 09/17/20 [History Confirmed 02/05/21] levothyroxine 75 mcg PO QAM 09/17/20 [History Confirmed 02/05/21] lisinopril 10 mg PO QAM 09/17/20 [History Confirmed 02/05/21] montelukast 10 mg PO QAM 09/17/20 [History Confirmed 02/05/21] quetiapine 300 mg PO HS 09/17/20 [History Confirmed 02/05/21] ropinirole 2 mg PO QPM 09/17/20 [History Confirmed 02/05/21] sertraline 100 mg PO HS 09/17/20 [History Confirmed 02/05/21] spironolactone 12.5 mg PO QAM 09/17/20 [History Confirmed 02/05/21] dutasteride 0.5 mg PO QAM 02/04/21 [History Confirmed 02/05/21] silodosin [Rapaflo] 8 mg PO QAM 02/04/21 [History Confirmed 02/05/21] Vitamin D3 1 tab PO DAILY 02/05/21 [History Confirmed 02/05/21] acetaminophen [Tylenol Extra Strength] 500 mg PO Q6H 02/05/21 [History Confirmed 02/05/21] cyclobenzaprine 5 mg PO HS 02/05/21 [History Confirmed 02/05/21] ferrous sulfate 325 mg PO DAILY 02/05/21 [History Confirmed 02/05/21] lamotrigine 200 mg PO BID 02/05/21 [History Confirmed 02/05/21] Home Medications Acetaminophen (Acetaminophen 500 Mg Tab) 500 mg PO Q6H [facility] Stop: 03/07/21 17:59 Last Admin: 02/09/21 05:53 Dose: 500 mg Documented by: Aspirin (Aspirin 325 Mg Ectab) 325 mg PO QAM [facility] Stop: 03/08/21 08:59 Last Admin: 02/09/21 08:52 Dose: 325 mg Documented by: Atorvastatin Calcium (Atorvastatin 40 Mg Tab) 40 mg PO PM [facility] Stop: 03/07/21 20:59 Last Admin: 02/08/21 20:08 Dose: 40 mg Documented by: Bisacodyl (Bisacodyl 10 Mg Supp) 10 mg OR DAILY PRN PRN Reason: Constipation Stop: 03/07/21 17:40 Bisoprolol Fumarate (Bisoprolol Fumarate 5 Mg Tab) 5 mg PO QAM [facility] Stop: 03/08/21 08:59 Last Admin: 02/07/21 07:49 Dose: Not Given Documented by: Dextrose (Dextrose 50% 50 Ml Syringe) 25 - 50 ml IV UD PRN; Protocol PRN Reason: Hypoglycemia Protocol Stop: 03/07/21 18:14 Docusate Sodium (Docusate Sodium 100 Mg Cap) 100 mg PO BID [facility] Stop: 03/07/21 20:59 Last Admin: 02/09/21 08:51 Dose: 100 mg Documented by: Donepezil HCl (Donepezil Hcl 5 Mg Tab) 5 mg PO QPM [facility] Stop: 03/07/21 20:59 Last Admin: 02/08/21 20:10 Dose: 5 mg Documented by: Fenofibrate (Fenofibrate Nanocrystallized 145 Mg Tablet) 145 mg PO QAM [facility] Stop: 03/08/21 08:59 Last Admin: 02/09/21 08:51 Dose: 145 mg Documented by: Ferrous Sulfate (Ferrous Sulfate 325 Mg Tab) 325 mg PO DAILY [facility] Stop: 03/08/21 08:59 Last Admin: 02/09/21 08:52 Dose: 325 mg Documented by: Gabapentin (Gabapentin 600 Mg Tab) 1,200 mg PO HS [facility] Stop: 03/07/21 20:59 Last Admin: 02/07/21 20:14 Dose: 1,200 mg Documented by: Gabapentin (Gabapentin 400 Mg Cap) 400 mg PO BID [facility] Stop: 03/10/21 20:59 Last Admin: 02/09/21 08:51 Dose: 400 mg Documented by: Glucagon (Glucagon For Inj 1 Mg Vial) 1 mg SQ UD PRN; Protocol PRN Reason: Hypoglycemia Protocol Stop: 03/07/21 18:14 Glucose (Glucose 40% Gel 15 Gm Tube) 15 - 30 gm PO UD PRN; Protocol PRN Reason: Hypoglycemia Protocol Stop: 03/07/21 18:14 Glucose (Glucose 10 Tabs/Tube) 4 - 8 tabs PO UD PRN; Protocol PRN Reason: Hypoglycemia Protocol Stop: 03/07/21 18:14 Insulin Aspart (Insulin Aspart 100 Units/Ml 3 Ml Pen) 0 units SC [facility]; Protocol Stop: 03/07/21 18:14 Last Admin: 02/09/21 08:53 Dose: Not Given Documented by: Lamotrigine (Lamotrigine 100 Mg Tab) 200 mg PO BID [facility] Stop: 03/07/21 20:59 Last Admin: 02/09/21 08:51 Dose: 200 mg Documented by: Levothyroxine Sodium (Levothyroxine Sodium 75 Mcg Tablet) 75 mcg PO DAILYBB [facility] Stop: 03/08/21 06:29 Last Admin: 02/09/21 05:53 Dose: 75 mcg Documented by: Lisinopril (L[facility]op[facility] 10 Mg Tab) [facility] [place]: 03/08/21 08:59 Last Admin: 02/07/21 07:50 Dose: Not Given Documented by: Magnesium Hydroxide (Magnesium Hydroxide Susp 30 Ml Udc) 30 ml PO Q6H PRN PRN Reason: Constipation Stop: 03/07/21 17:40 Metoclopramide HCl (Metoclopramide Hcl Inj 5 Mg/Ml 2 Ml Vial) 10 mg IV Q6H PRN PRN Reason: Nausea And Vomiting Stop: 03/07/21 17:40 Miscellaneous (Carbohydrates For Hypoglycemia ) 15 - 30 gm PO UD PRN PRN Reason: Hypoglycemia Treatment Stop: 03/07/21 18:14 Miscellaneous (Dutasteride 0.5 Mg Cap: Order Awaiting Action) 1 ea N/A QS [facility] Stop: 03/08/21 00:00 Last Admin: 02/09/21 08:57 Dose: Not Given Documented by: Miscellaneous (Silodosin [Rapaflo] 8 Mg Cap: Order Awaiting Action) 1 ea N/A QS [facility] Stop: 03/08/21 00:00 Last Admin: 02/09/21 08:57 Dose: Not Given Documented by: Montelukast Sodium (Montelukast Sodium 10 Mg Tablet) 10 mg PO [facility] Stop: 03/08/21 08:59 Last Admin: 02/09/21 08:51 Dose: 10 mg Documented by: Multivitamins (Multivitamin Tab) 1 tab PO [facility] Stop: 03/08/21 08:59 Last Admin: 02/09/21 08:52 Dose: 1 tab Documented by: Naloxone HCl (Naloxone Hcl 0.4 Mg/1 Ml Vial/Carp) 0.1 mg IV Q5M PRN PRN Reason: Oversedation/Resp Depression Stop: 03/07/21 17:40 Ondansetron HCl (Ondansetron Inj 2 Mg/Ml 2 Ml Vial) 4 mg IV Q6H PRN PRN Reason: Nausea And Vomiting Stop: 03/07/21 17:40 Oxycodone HCl (Oxycodone Hcl Ir 5 Mg Tab (Immediate Release)) 5 - 10 mg PO Q4H PRN PRN Reason: Pain or Pre PT Stop: 02/19/21 17:40 Last Admin: 02/08/21 19:32 Dose: 5 mg Documented by: Quetiapine Fumarate (Quetiapine Fumarate 300 Mg Tablet) 300 mg PO [facility] Stop: 03/07/21 20:59 Last Admin: 02/08/21 20:10 Dose: 300 mg Documented by: Ropinirole HCl (Ropinirole Hcl 1 Mg Tablet) 2 mg PO QPM [facility] Stop: 03/07/21 20:59 Last Admin: 02/08/21 20:10 Dose: 2 mg Documented by: Sennosides (Senna 8.6 Mg Tab) 17.2 mg PO [facility] Stop: 03/07/21 20:59 Last Admin: 02/08/21 20:11 Dose: 17.2 mg Documented by: Sertraline HCl (Sertraline Hcl 100 Mg Tablet) 100 mg PO [facility] Stop: 03/07/21 20:59 Last Admin: 02/08/21 20:12 Dose: 100 mg Documented by: Vitamin D (Cholecalciferol 400 Units 10 Mcg Tab) 400 units PO DAILY [facility] Stop: 03/08/21 08:59 Last Admin: 02/09/21 08:51 Dose: 400 units Documented by: PG Care Time/CCT Total # of Minutes Spent Total Time Spent with Patient: Total time spent is greater than 50% in coordination of care (as documented) at patient's floor/unit and/or counseling patient:35 Coding Level of Care Code 99382 Subseq Hosp Care Lvl 2 Diagnoses Rotator cuff arthropathy of right shoulder M12.811 Hypotension I95.9 Acute kidney injury N17.9 DM type 2 (diabetes mellitus, type 2) E11.9 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 transplanted heart: [place] heart Associated angina: without angina COPD (chronic obstructive pulmonary disease) J44.9 COPD type: unspecified COPD Time Spent (min) 50 (1) DM type 2 (diabetes mellitus, type 2) Diabetes mellitus detention insulin use: without detention use Diabetes mellitus complication status: without complication Qualified Code(s): E11.9 - Type 2 diabetes mellitus without complications (2) CAD (coronary artery disease) Coronary Disease-Associated Artery/Lesion type: [place] artery [place] vs. transplanted heart: [place] heart Associated angina: without angina Qualified Code(s): I25.10 - Atherosclerotic heart disease of [place] coronary artery without angina pectoris (3) COPD (chronic obstructive pulmonary disease) COPD type: unspecified COPD Qualified Code(s): J44.9 - Chronic obstructive pulmonary disease, unspecified
--- NOTE | 2021-02-09 11:08 | Orthopedic Progress Note ---
Date of Service February 09, 2021 Assessment & Plan (1) Status post reverse arthroplasty of right shoulder: Postop day 4 status post right reverse total shoulder arthroplasty Continue PT/OT protocols today. Nonweightbearing on the right upper extremity. DVT prophylaxis-aspirin, SCDs. Pain management as written. DC planning-patient is planning on discharge to home with outpatient PT. Case discussed with Med Service. Pt is stable for discharge. He does not need home O2. Admission and Anticipated Discharge Date Admission Date: February 05, 2021 Supervising Physician Co-Signing Physician Notes Patient seen and examined agree with above assessment and plan. Subjective Postop day 4 Patient currently sitting up in his chair at the bedside. No complaints this morning. Pain is controlled. Denies shortness of breath, chest pain, lightheadedness. He is hoping to go home today. We discussed the possibility of home health services versus outpatient and the patient is adamant that he continues to do outpatient therapy. He feels that he and his will be able to manage at home and he does not want to consider any type of home health services versus rehab. Physical Exam Physical Exam: [place] dressing is clean, dry, and intact. Capillary fill is less than 2 seconds. Neurovascular is intact. He is moving the fingers well and has good sensation. Sling is in place. Results & Data ([facility]) Vital Signs (Past 12 Hours) Vital Signs Temp Pulse Pulse Pulse Pulse Resp Resp 02/09/21 07:55 91 H 84 71 20 02/09/21 07:45 36.8 C 70 16 Resp Resp BP Pulse Ox Pulse Ox Pulse Ox Pulse Ox 02/09/21 07:55 16 16 91 93 95 02/09/21 07:45 129/72 97
--- NOTE | 2021-02-09 16:13 | Discharge Summary ---
Date of Service February 09, 2021 Admission HPI Per Admitting Provider Mr. Lopes returns for his right shoulder. He again has had severe right shoulder pain and weakness for the past 2 years without any obvious injury but with gradual progressive worsening. This is quite painful and waking him up at night. He has a lot of weakness and cannot abduct past shoulder level, but the pain is much more bothersome than the lack of abduction strength. I gave him a shoulder joint steroid injection as first-line treatment for this in July 2020. He reports that he got about 60% improvement in his pain for a little over a month, but then it promptly wore off and he is back to his baseline level of pain. While the injection was giving him some pain relief, I was able to move his shoulder a little bit better. Due to his recurrent severe pain, we did actually have him set up for a reverse total shoulder arthroplasty, but this had to be canceled due to gastrointestinal bleeding issues. He had an extensive work-up with a java web architect, including endoscopy, colonoscopy, and capsule endoscopy. He was finally cleared by his java web architect to proceed with his shoulder surgery; we received this clearance on 01/08/21. It looks like they found a small intestinal erosion, some hemorrhoids, and an AV malformation as a source of his chronic blood loss. He has been treated with ferrous sulfate. The looks like he was instructed not to take any anti-inflammatories. Principal Diagnosis Right shoulder rotator cuff tear arthropathy Discharge Data Allergies Allergy/AdvReac Type Severity Reaction Status Date / Time morphine AdvReac n/v, Verified 02/05/21 09:48 hypoventilation Consultations 02/06/21 14:34 Consult Hospitalist Routine Procedures Performed Operation Date: 02/05/21 11:45 Actual Procedures p Right Total Shoulder Arthroplasty Reverse(Right) - Tenzin Garcia M.D. Ordered Studies 02/05/21 05:00 US - OR guided needle placemen Routine Hospital Course (1) Status post reverse arthroplasty of right shoulder: Patient underwent a right reverse total shoulder arthroplasty on 02/05. Patient tolerated the procedure well and was transferred up to the general orthopedic surgery floor in stable condition. Perioperative antibiotic coverage was initiated, and continued for 24 hours postoperatively. DVT prophylaxis was initiated consisting of SCDs and aspirin 325 mg daily. Perioperative pain control regimen was transitioned to strictly oral pain medications by postoperative day 1. On postoperative day 1 the patient was doing well. Pain was well controlled, and patient was mobilizing well with therapy. Unfortunately however, hypoxia was noted during ambulation on postoperative day 1, and hospitalist medicine service was consulted. He was noted to have pre- existing COPD, asbestosis, and uncontrolled sleep apnea managed by Dr. Tomlin in [place]. He has been noted to be noncompliant with CPAP use. He was noted to have need for chronic oxygen therapy that is new this admission, but suspected to be chronic. He demonstrated a need for 3 L of oxygen with exertion, and 1 L at rest. He was given IV Lasix, but then developed hypotension, and was therefore given fluid boluses. He had an echocardiogram that showed normal ejection fraction at 55 to 60% and no wall motion abnormalities. He also developed an acute kidney injury, with elevation of his creatinine from baseline of 1.2-1.3 up to about 2.1. By postoperative day 4, his creatinine had returned to its baseline and he no longer required any supplemental oxygen. He was therefore determined be safe ready for discharge to home. Total Time Total Time Spent Total Time Spent (In Minutes): 15 Discharge Plan Discharge Items Patient Disposition: Home - Self-Care Reason For Visit: Right Shoulder Rotator Cuff Tear Arthropathy Discharge Diagnosis: Right shoulder rotator cuff tear arthropathy Activity: Per Instructions section Non-emergency contact: Surgeon Call non-emergency contact if: your pain is not controlled, your temperature is above 101.5, your wound has increased redness and your wound has increased drainage Follow-up/Referrals: Henry Carrillo [Primary Care Provider] - 02/11/21 10:40 am Tenzin Garcia M.D. [Physician] - Ashkan Tomlin [Outside Practitioners] - 02/17/21 10:30 am (APPT AT [facility], WITH MAURO ROBERT PA-C.) Diet: Carb Consistent or DM2 Addtl Attending Provider Instructions: Things to Watch Out For -Go to the Emergency Room if you have sudden onset of nausea, vomiting, chest pain, shortness of breath, or uncontrollable pain. -Call the clinic or go to the Emergency Room if you have a sudden increase in the amount of wound drainage or the drainage becomes thick, yellow or green, or foul-smelling. -For routine questions, call the clinic at [phone] during regular business hours (8am-5pm). For urgent issues after regular business hours, you may call the clinic to be connected to the on-call physician. Dressings -A special waterproof, silver-impregnated dressing was placed on your shoulder. Keep this dressing in place for 1 week after surgery. You may shower with the w aterproof dressing in place, but do not soak the dressing in the bathtub or pool. -One week after surgery, you may remove the waterproof dressing. You may continue to shower, and let water run BRIEFLY over the incision, but do not soak the incision in the bathtub or pool for 2 weeks. You may also gently clean the incision with mild soap and water; pat the incision dry after cleaning-do not rub the incision. Apply a new dressing daily thereafter. Shoulder Exercises -Keep your operative shoulder in the sling for comfort, except as detailed below. -You should come out of the sling 4-5 times a day for passive pendulum exercises: lean over and swing your arm in a circular pattern. -You should also do active-assisted forward flexion exercises: use your opposite hand to lift your operative arm forward to 90 degrees. -Do not flex your elbow (curl motion) or supinate your forearm (rotating palm up) against resistance. -Do not use your arm to push yourself up out of bed or up from a seated posi tion. Ice Pack -You may use an ice pack for pain relief. You should use it 20-30 minutes at a time. Place a towel between the ice pack and your skin to prevent frostbite. -You should use the ice pack fairly regularly for the first 1-2 weeks after surgery to help reduce pain and inflammation. -About 2 weeks after your surgery, you should start using heat to loosen up your shoulder prior to doing your stretching exercises, then use the cooling sleeve after your exercises are complete to reduce swelling and pain. Pain Medicines -Your prescriptions for pain medications have already been sent to the pharmacy on file at [facility]. -You have been prescribed a non-narcotic pain medicine (Tylenol/acetaminophen). This is your primary pain medication. Take it every 6 hours as instructed. -DO NOT take any additional Tylenol/acetaminophen products with these prescribed medications. -You have also been prescribed an additional narcotic pain medication (oxycodone). Take this medicine ONLY for breakthrough pain not controlled by the acetaminophen. -Do not drive or operate heavy machinery while taking the narcotic medication. -Common side effects of narcotic pain medicines include itching, nausea, constipation, and feeling "loopy". However, if you develop a rash or hives, stop taking the medicine and call the clinic. If you develop swelling in your throat or difficulty breathing, go to the Emergency Room or call 911 IMMEDIATELY. -You may take over the counter stool softeners if needed for constipation. Aspirin -Take a full strength (325mg) aspirin every day for 4 weeks (28 days) to prevent blood clots. -If you were taking a baby aspirin (81mg) prior to surgery, you may resume taking this 81mg dose after you complete the 28-day course of the 325mg strength dose; do not take the 325mg dose in addition to your 81mg dose. -Be aware that you will bruise easier while taking Aspirin; this is normal. However, if you develop a significantly large area of swelling after an injury, or have a cut that will not stop bleeding, call the clinic or go to the Emergency Room immediately. Pending Studies at Discharge: No Stand-Alone Forms: My [facility] Medications and DC Order Prescriptions: Continued atorvastatin 40 mg Tablet 40 mg PO PM RF: 0 gabapentin 600 mg Tablet 1,200 mg PO HS RF: 0 donepezil 5 mg Tablet 5 mg PO QPM RF: 0 quetiapine 300 mg Tablet 300 mg PO HS RF: 0 sertraline 100 mg Tablet 100 mg PO HS RF: 0 spironolactone 25 mg Tablet 12.5 mg PO QAM RF: 0 glimepiride 2 mg Tablet 2 mg PO QAM RF: 0 levothyroxine 75 mcg Tablet 75 mcg PO QAM RF: 0 bisoprolol fumarate 5 mg Tablet 5 mg PO QAM RF: 0 ropinirole 2 mg Tablet 2 mg PO QPM RF: 0 lisinopril 10 mg Tablet 10 mg PO QAM RF: 0 montelukast 10 mg Tablet 10 mg PO QAM RF: 0 fenofibrate nanocrystallized [Tricor] 145 mg Tablet 145 mg PO QAM RF: 0 dutasteride 0.5 mg Capsule 0.5 mg PO QAM RF: 0 silodosin [Rapaflo] 8 mg Capsule 8 mg PO QAM RF: 0 acetaminophen [Tylenol Extra Strength] 500 mg Tablet 500 mg PO Q6H RF: 0 lamotrigine 100 mg Tablet 200 mg PO BID RF: 0 cyclobenzaprine 5 mg Tablet 5 mg PO HS RF: 0 ferrous sulfate 325 mg (65 mg iron) Tablet 325 mg PO DAILY RF: 0 Vitamin D3 1 tab PO DAILY RF: 0 Discontinued aspirin [Aspir-81] 81 mg Tablet,Delayed Release (Dr/Ec) 81 mg PO Q OTHER DAY RF: 0 Discharge Orders: Discharge Order (Routine); Ordered 02/09/21 Ordered By: Kb Fung/Other Patient Handouts: DVT Post Op Prevention Admission Data Admit Date/Time: 02/05/21 16:50 Attending Provider: Tenzin Garcia Admit Provider: Tenzin Garcia Primary Care Provider: Henry Carrillo Other Providers: Levar Burrows Other Interventions: Discharge Summary Assessment (RN) Last Done: 02/09/21 11:17
== END 2021-02-09 14:57 | disposition home or self-care (01) | DRG 483 ==
LOC: ASU 09:14 → 3E 16:50